=== PATIENT | female | born 1940 | race Caucasian/White ===

== ENCOUNTER → 2016-08-18 | Outpatient (CLI) | payer MEDICARE, OTHER ==
[~2016-08-18] MED LIST: ESTR1TAB22 PO; HYDR-34 PO; OMEP40CA36 PO; [UNRECOGNIZED DRUG - CODE] PO; [UNRECOGNIZED DRUG - CODE] PO
--- NOTE | 2016-08-19 10:19 | Diagnostic Imaging Report ---
EXAM: Bilateral screening mammogram The current study was also evaluated with a Computer Aided Detection (CAD) system. INDICATION: Screening. No current complaints stated on the questionnaire. COMPARISON: 03/02/15 FINDINGS: The breasts are composed of heterogeneously dense parenchyma which may decrease mammographic sensitivity. There are scattered benign-appearing calcifications. In the central posterior aspect of the right MLO view, there is a questionable area of architectural distortion. Otherwise, the parenchymal pattern is stable in both breasts from prior exams. IMPRESSION: Questionable architectural distortion and asymmetry along the posterior central aspect of the right MLO view. Focal compression view evaluation and ultrasound is recommended. BI-RADS 0. ACR BI-RADS Category 0: Incomplete. (Needs additional imaging evaluation). Result letter will be mailed to the patient. Note: At least 10% of breast cancer is not imaged by mammography. Dictated by: Dictated on workstation # [id number]
== END ==
LOC: RAD 15:16
PROVIDERS: ATTEND Internal Medicine
DX: Z12.31 Encounter for screening mammogram for malignant neoplasm of breast (principal); R92.8 Other abnormal and inconclusive findings on diagnostic imaging of breast
CPT/HCPCS: 77067

== ENCOUNTER → 2016-09-12 | Outpatient (CLI) | payer MEDICARE, OTHER ==
[~2016-09-12] MED LIST changes: +CATHETER FLUSH 10 ML SYR IV PRN; +IOHEXOL 350 MG/ML 100 ML (OMNIPAQUE 350) VIAL IV ONE; +NS 100 ML (IVPB) BAG IV ONE
[2016-09-12 12:25] LABS: BASOPHILS % (AUTO) 0 % (0-10); EOSINOPHILS # (AUTO) 0.3 10^3/uL (0.0-0.3); EOSINOPHILS % (AUTO) 3 % (0-10); LYMPHOCYTES % (AUTO) 33 % (12-44); MEAN CORPUSCULAR HEMOGLOBIN 32 PG (25-34); MEAN CORPUSCULAR HGB CONC 33 G/DL (32-36); MEAN CORPUSCULAR VOLUME 96 FL (80-99); MEAN PLATELET VOLUME 9.9 FL (7.4-10.4); MONOCYTES # (AUTO) 0.9 X 10^3 (0.0-1.0); MONOCYTES % (AUTO) 10 % (0-12); NEUTROPHILS # (AUTO) 4.9 X 10^3 (1.8-7.8); NEUTROPHILS % (AUTO) 53 % (42-75); PLATELET COUNT 290 10^3/uL (130-400); RED BLOOD COUNT 4.27 10^6/uL (4.35-5.85); RED CELL DISTRIBUTION WIDTH 13.1 % (10.0-14.5); WHITE BLOOD COUNT 9.1 10^3/uL (4.3-11.0)
[2016-09-12 12:27] LABS: BILIRUBIN,URINE NEGATIVE (NEGATIVE); KETONES,URINE NEGATIVE (NEGATIVE); LEUKOCYTE ESTERASE ,URINE NEGATIVE (NEGATIVE); NITRITE,URINE NEGATIVE (NEGATIVE); PH,URINE 5 (5-9); PROTEIN,URINE NEGATIVE (NEGATIVE); UROBILINOGEN,URINE NORMAL (NORMAL)
[2016-09-12 12:44] LABS: ALANINE AMINOTRANSFERASE 15 U/L (0-55); ALBUMIN 4.3 G/DL (3.2-4.5); ANION GAP 8 MMOL/L (5-14); ASPARTATE AMINO TRANSFERASE 25 U/L (5-34); BILIRUBIN,TOTAL 0.4 MG/DL (0.1-1.0); BLOOD UREA NITROGEN 15 MG/DL (7-18); BUN/CREATININE RATIO 21; CALCIUM 9.9 MG/DL (8.5-10.1); CARBON DIOXIDE 27 MMOL/L (21-32); CHLORIDE 105 MMOL/L (98-107); GFR ESTIMATED > 60; GLUCOSE 80 MG/DL (70-105); POTASSIUM 4.1 MMOL/L (3.6-5.0); SODIUM 140 MMOL/L (135-145); TOTAL PROTEIN 7.2 G/DL (6.4-8.2)
--- NOTE | 2016-09-12 14:30 | Diagnostic Imaging Report ---
PROCEDURE: CT abdomen and pelvis with contrast. TECHNIQUE: Multiple contiguous axial images were obtained through the abdomen and pelvis after administration of intravenous contrast. INDICATION: Generalized abdominal pain. CONTRAST: 100 mL of Omnipaque 350 is administered intravenously. FINDINGS: The lung bases appear clear. The liver, the spleen, the adrenal glands, and the pancreas appear unremarkable. The bile ducts are slightly dilated, with no obstructive mass identified. This is commonly seen after cholecystectomy. Cholecystectomy clips are seen. The kidneys have symmetric enhancement and contrast excretion. There is no hydronephrosis. The abdominal aorta caliber is normal. No para-aortic significantly enlarged lymph nodes seen. In the posterior left side of the pelvis, there is a 6.3 x 4.8 x 6.7 cm simple appearing cystic lesion probably arising from the left ovary. No septations or internal solid components seen. There is no previous study available for comparison. It displaces the uterus to the right side. There is no bowel obstruction. No free fluid in the abdomen or pelvis seen. The osseous structures demonstrate right convexity scoliosis. There is a lower lumbar spine degenerative change. IMPRESSION: A 6.7 cm left pelvic cystic mass is seen with no definite solid component. It is probably arising from the left adnexa and may represent a low-grade cystic neoplasm or a simple cyst. Further evaluation with pelvic ultrasound is recommended. Report was faxed to office of Dr. Jasmin Braxton @ 2:29 PM/charli. Dictated by: Dictated on workstation # [id number]
== END ==
LOC: RAD 12:07
PROVIDERS: ATTEND Internal Medicine
DX: R10.84 Generalized abdominal pain (principal); I10 Essential (primary) hypertension; E78.00 Pure hypercholesterolemia, unspecified; R19.04 Left lower quadrant abdominal swelling, mass and lump
CPT/HCPCS: 36415; 74177; 80053; 81000; 85025

== ENCOUNTER → 2016-09-20 | Outpatient (CLI) | payer MEDICARE, OTHER ==
[~2016-09-20] MED LIST changes: -CATHETER FLUSH 10 ML SYR IV PRN; -IOHEXOL 350 MG/ML 100 ML (OMNIPAQUE 350) VIAL IV ONE; -NS 100 ML (IVPB) BAG IV ONE
--- NOTE | 2016-09-20 16:35 | Diagnostic Imaging Report ---
EXAMINATION: Transabdominal and transvaginal pelvic ultrasound. INDICATION: Pelvic pain. FINDINGS: The uterus is 5.3 x 3.2 x 2.6 cm. The endometrial stripe is 4 mm in thickness. Minimal amount of free fluid in the endometrial cavity is noted. There is a simple appearing cystic structure measuring 8 x 5.2 x 5.2 cm in the left adnexa. The ovaries are not identified. This could potentially be from the left ovary. The ovaries are not seen probably due to atrophy at this age and bowel gas obscuration. No solid component or internal vascularity is demonstrated. IMPRESSION: Simple appearing 8 cm cystic lesion is seen in the left adnexa. Ovarian origin is possible but not confirmed on this exam. This could represent a simple cyst or a low-grade cystic neoplasm. Dictated by: Dictated on workstation # [id number]
== END ==
LOC: RAD 13:53
PROVIDERS: ATTEND Internal Medicine
DX: R19.09 Other intra-abdominal and pelvic swelling, mass and lump (principal)
CPT/HCPCS: 76830; 76856

== ENCOUNTER 2016-10-27 12:06 | Outpatient (CLI) | payer MEDICARE, OTHER ==
[~2016-10-27] VITALS: Ht 165.1 cm; Wt 54.1 kg
[2016-10-27 12:22] VITALS: BP 139/58
[2016-10-27 13:10] LABS: BASOPHILS % (AUTO) 0 % (0-10); EOSINOPHILS # (AUTO) 0.3 10^3/uL (0.0-0.3); EOSINOPHILS % (AUTO) 3 % (0-10); LYMPHOCYTES # (AUTO) 2.3 X 10^3 (1.0-4.0); LYMPHOCYTES % (AUTO) 23 % (12-44); MEAN CORPUSCULAR HEMOGLOBIN 32 PG (25-34); MEAN CORPUSCULAR HGB CONC 34 G/DL (32-36); MEAN CORPUSCULAR VOLUME 96 FL (80-99); MEAN PLATELET VOLUME 10.1 FL (7.4-10.4); MONOCYTES # (AUTO) 1.2 X 10^3 (0.0-1.0); MONOCYTES % (AUTO) 12 % (0-12); NEUTROPHILS # (AUTO) 6.5 X 10^3 (1.8-7.8); NEUTROPHILS % (AUTO) 63 % (42-75); PLATELET COUNT 267 10^3/uL (130-400); RED CELL DISTRIBUTION WIDTH 13.1 % (10.0-14.5); WHITE BLOOD COUNT 10.3 10^3/uL (4.3-11.0)
== END 2016-10-27 14:12 | disposition home or self-care (01) ==
LOC: PREOP 12:06
PROVIDERS: ATTEND Obstetrics & Gynecology
DX: Z01.812 Encounter for preprocedural laboratory examination (principal); Z11.2 Encounter for screening for other bacterial diseases; R10.2 Pelvic and perineal pain
CPT/HCPCS: 36415; 85025; 86850; 86900; 86901; 87081

== ENCOUNTER 2016-11-17 06:10 | Day surgery (SDC) | payer MEDICARE, OTHER ==
[~2016-11-17] VITALS: Ht 165.1 cm; Wt 54.1 kg
[2016-11-17] VITALS (10 sets, daily range): BP systolic 120–168; BP diastolic 51–76
[2016-11-17] MEDS ORDERED: NS (IVPB) 50 ML ONE (06:30)
[2016-11-17] MEDS ORDERED: ceFAZolin 1,000 MG (ANCEF) VIAL ONE (06:30)
[2016-11-17] MEDS ORDERED: metroNIDAZOLE 500MG/100ML IVPB 0 ML ONE (06:31)
[2016-11-17] MEDS ORDERED: ATRACURIUM 50 MG/5 ML (TRACRIUM) IV ONE (06:36)
[2016-11-17] MEDS ORDERED: HURRICAINE EXT TUBE (BENZOCAINE) ONE (06:37)
[2016-11-17] MEDS ORDERED: SEVOFLURANE (ULTANE) 15 ML INHAL SOLN ONE ×7 (06:37→08:47)
[2016-11-17] MEDS ORDERED: LIDOCAINE PF 2% 5 ML (XYLOCAINE) VIAL ONE ×2 (06:37→06:39)
[2016-11-17] MEDS ORDERED: proPOfol 200 MG/20 ML (DIPRIVAN) VIAL IV ONE (06:37)
[2016-11-17] MEDS ORDERED: fentaNYL INJECTION 100 MCG/2 ML AMP ONE (06:37)
[2016-11-17] MEDS ORDERED: LACTATED RINGERS 1,000 ML IV ONE (06:37)
[2016-11-17] MEDS ORDERED: MIDAZOLAM 2 MG/2 ML (VERSED) VIAL ONE (06:38)
[2016-11-17] MEDS ORDERED: BUP/EPI 0.5% 1:200,000 (MARCAINE) 10ML VIAL IJ ONE (06:43)
[2016-11-17] MEDS ORDERED: LACTATED RINGERS 1,000 ML IV PRN (06:57)
[2016-11-17] MEDS ORDERED: ceFAZolin 1 GM/NS 50 ML IVPB IV ONE ×2 (07:00)
[2016-11-17] MEDS ORDERED: metroNIDAZOLE 500 MG/100 ML IVPB (PRE-MIX) IV ONE (07:00)
--- NOTE | 2016-11-17 07:16 | Progress Note-Pre Operative ---
Pre-Operative Progress Note H&P Reviewed The H&P was reviewed, patient examined and no changes noted. Date Seen by Provider: Nov 17, 2016 Time Seen by Provider: 07:10 Date H&P Reviewed: Nov 17, 2016 Time H&P Reviewed: 07:11 Pre-Operative Diagnosis: Pelvic pain/pressure, Right adnexal mass COLLIN WHITE DO Nov 17, 2016 7:16 am
[2016-11-17] MEDS ORDERED: metroNIDAZOLE 500MG/100ML IVPB 100 ML ONE (07:20)
[2016-11-17] MEDS ORDERED: ZOLPIDEM 5 MG (AMBIEN) TAB PO PRN (07:30)
[2016-11-17] MEDS ORDERED: SIMETHICONE 80 MG (MYLICON) CHEW PO PRN (07:30)
[2016-11-17] MEDS ORDERED: HYDROcodone/APAP 7.5 MG/325 MG (LORTAB, LORCET PLUS) TABLET PO PRN (07:30)
[2016-11-17] MEDS ORDERED: ONDANSETRON 4 MG/2 ML (SDV) Z0FRAN IV PRN (07:30)
[2016-11-17] MEDS ORDERED: KETOROLAC 30 MG/ML VIAL IV PRN (07:30)
[2016-11-17] MEDS ORDERED: ANTACID SUSP 30 ML UDC (MYLANTA) PO PRN (07:30)
[2016-11-17] MEDS ORDERED: CHLORASEPTIC LOZENGE MM PRN (07:30)
[2016-11-17] MEDS ORDERED: DOCUSATE SODIUM 100 MG (COLACE) CAP PO PRN (07:30)
[2016-11-17] MEDS ORDERED: morphine INJ 10 MG/ML 1ML (SYR OR VIAL) ONE (08:57)
--- NOTE | 2016-11-17 09:16 | Progress Note-Post Operative ---
Post-Operative Progess Note Surgeon (s)/Rn Pool (s) Surgeon COLLIN WHITE DO Rn Pool: Angelina Navas Pre-Operative Diagnosis Pelvic pain/pressure, Right adnexal mass Post-Operative Diagnosis same plus simple appearing right adnexal cyst Procedure & Operative Findings Date of Procedure 11/17/16 Procedure Performed/Findings RATLH with BSO see dictation Anesthesia Type GETA Estimated Blood Loss Estimated blood loss (mL): min Specimens/Packing Specimens Removed uterus, bilateral fallopian tubes and ovaries COLLIN WHITE DO Nov 17, 2016 9:15 am
[2016-11-17] MEDS ORDERED: ONDANSETRON 4 MG/2 ML (SDV) Z0FRAN IVP PRN (09:30)
[2016-11-17] MEDS: LACTATED RINGERS 1,000 ML IV SCH ×3 (09:31→20:46)
[2016-11-17] MEDS: morphine INJ 10 MG/ML 1ML (SYR OR VIAL) IVP PRN ×3 (09:38→09:51)
[2016-11-17] MEDS ORDERED: IBUP-1773 PO (09:54)
[2016-11-17] MEDS ORDERED: SIME80TA16 PO (09:54)
[2016-11-17] MEDS ORDERED: DOCU100C37 PO (09:54)
[2016-11-17] MEDS ORDERED: HYDR-3816 PO (09:54)
--- NOTE | 2016-11-17 09:55 | Discharge Inst-Women's Service ---
Discharge Inst-Women's Serv Depart Medication/Instructions New, Converted or Re-Newed RX: RX on Chart Consults/Follow Up Additional Follow Up: Yes Activity Activity: Activity as Tolerated Driving Instructions: No Driving for 1 Week NO SMOKING: NO SMOKING Nothing Inside Vagina: No Douching, No [place], No Tampons Diet Discharge Diet: No Restrictions Symptoms to Report to : Bleeding Excessive, Pain Increased, Fever Over 101 Degrees F, Vaginal Bleeding Increase, Questions/Concerns For Any Problems or Questions: Contact Your Physician Skin/Wound Care Infection Signs and Symptoms: Increased Redness, Foul Odor of Wound, Increased Drainage, Skin Itchy or Has a Rash, Increased Swelling, Temperature Above 101 F Operative Area Clean and Dry: Keep Incision Clean/Dry Stitches/Raysal/Dermabond: Dermabond, Care of Stitches Bathing Instructions: COLLIN Portillo DO Nov 17, 2016 9:55 am
--- NOTE | 2016-11-17 09:59 | Progress Note-Post Operative ---
Post-Operative Progess Note Surgeon (s)/Dental Ceramist (s) Surgeon KARRI LOYA DO Dental Ceramist: Angelina Navas Pre-Operative Diagnosis Pelvic pain/pressure, Right adnexal mass Post-Operative Diagnosis Pt was given Levaquin 500mg IVPB at 7:20, Dr. Seals informed no further orders noted. Procedure & Operative Findings Date of Procedure 11/17/16 Procedure Performed/Findings As per surgeon Anesthesia Type G.E.T. Estimated Blood Loss Estimated blood loss (mL): Minimal Specimens/Packing Specimens Removed See surgical note KARRI LOYA DO Nov 17, 2016 09:59
[2016-11-17] MEDS ORDERED: KETOROLAC 15 MG/ML VIAL ONE (10:50)
[2016-11-17] MEDS ORDERED: KETOROLAC 15 MG/ML VIAL IV PRN (11:30)
--- NOTE | 2016-11-17 14:00 | OPERATIVE REPORT ---
DATE OF SERVICE: 11/17/2016 PREOPERATIVE DIAGNOSIS: A 76-year-old female with pelvic cystic mass which appears to be on the right side. POSTOPERATIVE DIAGNOSIS: A 76-year-old female with pelvic cystic mass which appears to be on the right side plus left-sided simple appearing left ovarian cyst, approximately 8 x 12 cm. PROCEDURE: Robotic assisted total laparoscopic hysterectomy with bilateral salpingo-oophorectomy. SURGEON: Dr. Mamadou Seals. COMMUNITY DEVELOPMENT OFFICER: GERARDO Samuel. ANESTHESIA: General endotracheal. ESTIMATED BLOOD LOSS: Minimal. URINE OUTPUT: 30 mL at the end of the procedure. FLUIDS: 1700 mL lactated ringer's solution. FINDINGS: This is a normal-appearing postmenopausal uterus and a normal-appearing right ovary, left cystic appearing structure in place of the left ovary and the left adnexa with a yellowish tinged aspirate noted upon drainage, grossly normal-appearing vaginal mucosa and external female genitalia. SPECIMENS SENT: Uterus, bilateral fallopian tubes and bilateral ovaries including pelvic mass. INDICATIONS FOR PROCEDURE: This 76-year-old female is in consultation in my office for finding of pelvic pain associated with a large pelvic structure that appeared to be coming from the right adnexa on CT and ultrasound. I discussed with the patient her risk factors for carcinoma given her age and the size of the tumor; however, due to its consistency of being simple on ultrasound, as well as negative tumor markers, I offered the patient operative management of it here in [place] rather than referring to a gynecology oncologist. The risks of the procedure was discussed with the patient in detail including risk of bleeding, infection, damage to surrounding structures including but not limited to bowel, bladder, ureter, kidneys, risk for postoperative complications and followup procedure were reviewed with the patient. After all of her questions were answered, I also discussed with the patient the risk for possible laparotomy and even subsequent procedure and staging procedure if carcinoma was identified. All of her questions were answered pertaining to this topic as well. Consent was obtained in the preoperative area with her present, and the patient was taken to the operating room. OPERATIVE REPORT IN DETAIL: Once in the operating room, general anesthesia was found to be adequate. She was placed in the dorsal lithotomy position, prepped and draped in the normal sterile fashion. She was first examined under anesthesia. The vagina is atrophic. The uterus is not enlarged; however, there is a mass that is palpable in the left side of the pelvis. Pierce catheter was placed using sterile technique. A timeout was performed. Weighted speculum was inserted in the patient's vagina. A right angle retractor was used to visualize the cervix. It was grasped at the 12 o'clock position using a single tooth tenaculum. An 0 Vicryl suture was placed to the anterior lip of the cervix and then the tenaculum was removed. I then sounded the uterine cavity. It was found to be approximately 7 cm. I gently dilated the cervix using Hegar dilators and introduced a 6 cm Yenni uteri manipulator tip and a 3 cm colpotomy ring into the endometrial canal deploying the balloon and advancing the colpotomy ring around the vaginal fornix. Once this was in place, I removed all the instruments from the patient's vagina and performed a change of clothes where I took my attention to the abdomen. I infraumbilically infiltrated this area using 0.25% Marcaine and made an 8 mm incision using a knife. I directed the Veress needle to this incision. Intraperitoneal placement was confirmed using a saline drop test. I then proceeded with insufflation using CO2 gas. An open pressure of 4 mmHg was noted. I proceeded to a maximum pressure of 50 mmHg, at which point I removed the Veress needle and introduced an 8 mm blunt da Luz camera trocar. Once this was in place, I am able to confirm intraperitoneal placement using the da Luz laparoscope. I then placed the patient in steep Trendelenburg, which I am able to visualize all the anatomy described with the findings above. I placed 2 lateral trocars approximately 8 cm lateral to my infraumbilical trocar. Both of these areas were infiltrated using 0.25% Marcaine. The incisions were made with the knife, and the trocars were placed under direct visualization with the laparoscope. Once these are in place, I brought in the da Luz robot and docked in the appropriate fashion placing the da Luz vessel sealer in the left hand and monopolar reese in the right hand. I began the procedure by removing the pelvic mass so that I may perform the hysterectomy. I start this by the utero-ovarian ligament on the left side and bipolar cauterizing it using the vessel sealer. I then bipolared cauterized and transected the infundibulopelvic ligament on the left side. I then took by dissection down the meso-ovarium and mesosalpinx amputating the left ovary and its cystic structure associated with it. I then proceed on the left side grasping the round ligament, bipolar cauterizing this and using the vessel sealer down to the level of the lower uterine segment at which point I the anterior posterior leaflets of the broad ligament. The anterior leaflet was taken out through anterior vaginal fornix. The posterior leaflet was taken around the posterior vaginal fornix. I then performed a colpotomy at the 12 o'clock position using monopolar reese and after this I bipolar cauterized the uterine vessels laterally and transected using the vessel sealer. I then took my attention to the right side where I bipolar cauterized the infundibulopelvic ligament and transected it using the vessel sealer. I grasped the round ligament, bipolar cauterized it and transected it using vessel sealer. I then took down the broad ligament to the level of the lower uterine segment, which in a similar fashion I take the anterior leaflet and the posterior leaflet down exposing laterally the uterine vessels. I then bipolar cauterized these and transected them using vessel sealer. This allows me a circumferential view to perform a colpotomy around the Giovanni uterine manipulator colpotomy ring. I do this using a monopolar reese, amputating the cervix away from the vaginal fornix. I then removed the uterus, bilateral fallopian tubes and right ovary through the vagina. An endopouch bag was then introduced to the vaginal, in which the large cystic structure was placed into the endopouch bag and the cystic structure was removed through the vagina. Once it is aspiration using needle aspiration it is able to easily fit through the vagina. There was no spillage of the ovarian aspirate into the peritoneal contents or the vaginal itself, after which the planes of dissection appear hemostatic. I then closed the vaginal cuff using 2-0 Vicryl suture in a [id number] fashion in the lateral vaginal apices was suspending them to uterosacral ligaments. I closed the remaining of the vaginal cuff using 2-0 V Loc in a running fashion. There was no active bleeding noted once again from any of dissection planes. I then undocked the da Luz robot and proceeded with the remainder of the case laparoscopically. I copiously irrigated the pelvis using normal saline. Once again, no active bleeding was noted from any of my dissection planes. I then placed FloSeal hemostatic agent over all my planes of dissection and had the patient taken out of steep Trendelenburg where I removed the lateral trocars under direct visualization laparoscopically. There was no active bleeding noted from these spots. I then removed the infraumbilical trocar after releasing insufflation to this incision and trocar. I introduced 10 mL of 0.25% Marcaine through this incision and removed the trocar. The skin was then closed using 4-0 Monocryl in interrupted subcuticular stitches. Dermabond was applied to the incision and Band-Aids were placed over these. Pierce catheter was left in place. One gram of Ancef and 500 mg of Levaquin were given preoperatively for infection prophylaxis. The patient was taken to the recovery area in stable condition. Job ID: [id number] DocumentID: [id number] Dictated Date: 11/17/2016 09:23:55 Boiler Installer Date: 11/17/2016 13:59:09 Dictated By: DO JADEN GALEANO
[2016-11-17] MEDS ORDERED: HYDROcodone/APAP 5 MG/325 MG (LORTAB) TAB PO PRN (18:00)
[2016-11-18] VITALS: BP 162/61
[2016-11-18] MEDS ORDERED: IBUPROFEN 600 MG (MOTRIN) TAB PO ONE (01:04)
[2016-11-18 04:00] VITALS: BP 126/55
[2016-11-18] MEDS ORDERED: IBUPROFEN 600 MG (MOTRIN) TAB PO PRN (05:30)
[2016-11-18 08:00] VITALS: BP 136/50
--- NOTE | 2016-11-18 09:59 | Anesthesia-General Post-Op ---
General Patient Condition Mental Status/LOC: Same as Preop Cardiovascular: Satisfactory Nausea/Vomiting: Absent Respiratory: Satisfactory Pain: Controlled Complications: Absent Post Op Complications Complications None Follow Up Care/Instructions Patient Instructions None needed. Anesthesia/Patient Condition Patient Condition Patient is doing well, no complaints, stable vital signs, no apparent adverse anesthesia problems. No complications reported per nursing. BETTY FERRARI CRNA Nov 18, 2016 09:59
[2016-11-18 10:30] VITALS: BP 136/50
== END 2016-11-18 10:30 | disposition home or self-care (01) ==
LOC: SDC 06:10 → WS 11:01 → SDC 11-18 10:30
PROVIDERS: ATTEND Obstetrics & Gynecology
DX: N83.201 Unspecified ovarian cyst, right side (principal); N83.202 Unspecified ovarian cyst, left side; F17.210 Nicotine dependence, cigarettes, uncomplicated
CPT/HCPCS: 88112; 88305; 88307; 94664; 96361; 96375

== ENCOUNTER → 2016-12-14 | Outpatient (CLI) | payer MEDICARE, OTHER ==
[~2016-12-14] MED LIST changes: +DOCU100C37 PO; +HYDR-3816 PO; +IBUP-1773 PO; +SIME80TA16 PO
--- NOTE | 2016-12-14 13:23 | Diagnostic Imaging Report ---
EXAMINATION: Three views of the right knee. INDICATION: Osteoarthritis. FINDINGS: There is severe joint space loss in the medial compartment. Subchondral sclerotic changes and osteophytes are seen. Minimal osteophytes in the lateral compartment are seen. There is osteophyte formation also of the patella. There is suggestion of a suprapatellar effusion. The joint space in the lateral compartment and probably also in the patellofemoral compartment appears to be preserved. IMPRESSION: Osteoarthritis of the right knee, severe in the medial compartment. Dictated by: Dictated on workstation # [id number]
== END ==
LOC: RAD 08:11
PROVIDERS: ATTEND Orthopaedic Surgery
DX: M17.11 Unilateral primary osteoarthritis, right knee (principal)
CPT/HCPCS: 73562

== ENCOUNTER → 2017-01-03 | Outpatient (CLI) | payer MEDICARE, OTHER | LOC: RAD 13:17 | PROVIDERS: ATTEND Internal Medicine | DX: R91.1 Solitary pulmonary nodule (principal); J84.10 Pulmonary fibrosis, unspecified | CPT/HCPCS: 71250 ==

== ENCOUNTER → 2017-03-06 | Outpatient (CLI) | payer MEDICARE, OTHER ==
--- NOTE | 2017-03-06 13:41 | Diagnostic Imaging Report ---
Right breast diagnostic mammogram. CAD is utilized. The current study was also evaluated with a Computer Aided Detection (CAD) system. INDICATION: Asymmetry along the posterior central aspect of the right MLO view with questionable architectural distortion. FINDINGS: The right breast parenchyma is compressed with tomography evaluation demonstrated no definitive underlying mass. IMPRESSION: Diagnostic mammogram additional views demonstrate no definitive suspicious lesion. The apparent architectural distortion and asymmetry is perhaps related to the background dense parenchyma. Ultrasound evaluation pending. BI-RADS 0. ACR BI-RADS Category 0: Incomplete. (Needs additional imaging evaluation). Result letter will be mailed to the patient. Note: At least 10% of breast cancer is not imaged by mammography. Dictated by: Dictated on workstation # [id number]
--- NOTE | 2017-03-06 22:39 | Diagnostic Imaging Report ---
Right breast ultrasound. INDICATION: Central to upper right breast asymmetry. FINDINGS: The retroareolar region in the 4 quadrants of right breast were scanned with no underlying abnormality seen. IMPRESSION: Negative study. Asymmetry seen on mammography could be related to summation artifact of parenchyma. 6 months followup right breast mammogram is recommended to reassess. ACR BI-RADS Category 3: Probably benign findings. Dictated by: Dictated on workstation # [id number]
== END ==
LOC: RAD 12:12
PROVIDERS: ATTEND Internal Medicine
DX: N64.89 Other specified disorders of breast (principal); R92.0 Mammographic microcalcification found on diagnostic imaging of breast
CPT/HCPCS: 76641

== ENCOUNTER 2017-04-11 13:47 | Outpatient (CLI) | payer MEDICARE, OTHER ==
[~2017-04-11] VITALS: Ht 165.1 cm; Wt 55.3 kg
[2017-04-11 14:02] VITALS: BP 130/67
[2017-04-11] MEDS ORDERED: TRAZ-28 PO (14:04)
[2017-04-11] MEDS ORDERED: CALC-696 PO (14:04)
[2017-04-11] MEDS ORDERED: FEXO180T84 PO (14:04)
[2017-04-11 14:35] LABS: BASOPHILS % (AUTO) 0 % (0-10); EOSINOPHILS # (AUTO) 0.3 10^3/uL (0.0-0.3); EOSINOPHILS % (AUTO) 3 % (0-10); HEMATOCRIT 40 % (35-52); HEMOGLOBIN 13.6 G/DL (11.5-16.0); LYMPHOCYTES # (AUTO) 2.7 X 10^3 (1.0-4.0); LYMPHOCYTES % (AUTO) 23 % (12-44); MEAN CORPUSCULAR HEMOGLOBIN 33 PG (25-34); MEAN CORPUSCULAR HGB CONC 34 G/DL (32-36); MEAN CORPUSCULAR VOLUME 95 FL (80-99); MEAN PLATELET VOLUME 9.7 FL (7.4-10.4); MONOCYTES # (AUTO) 1.1 X 10^3 (0.0-1.0); MONOCYTES % (AUTO) 10 % (0-12); NEUTROPHILS # (AUTO) 7.6 X 10^3 (1.8-7.8); NEUTROPHILS % (AUTO) 65 % (42-75); PLATELET COUNT 306 10^3/uL (130-400); RED BLOOD COUNT 4.14 10^6/uL (4.35-5.85); RED CELL DISTRIBUTION WIDTH 13.1 % (10.0-14.5); WHITE BLOOD COUNT 11.8 10^3/uL (4.3-11.0)
[2017-04-11 14:55] LABS: BUN/CREATININE RATIO 19; CALCIUM 9.7 MG/DL (8.5-10.1); CARBON DIOXIDE 25 MMOL/L (21-32); CHLORIDE 101 MMOL/L (98-107); GFR ESTIMATED > 60; GLUCOSE 86 MG/DL (70-105); POTASSIUM 3.9 MMOL/L (3.6-5.0); SODIUM 138 MMOL/L (135-145)
== END 2017-04-11 14:30 | disposition home or self-care (01) ==
LOC: PREOP 13:47
PROVIDERS: ATTEND Otolaryngology Otolaryngology/Facial Plastic Surgery
DX: Z01.812 Encounter for preprocedural laboratory examination (principal); Z11.2 Encounter for screening for other bacterial diseases; J34.89 Other specified disorders of nose and nasal sinuses
CPT/HCPCS: 36415; 80048; 85025; 87081; 93005

== ENCOUNTER 2017-04-14 08:05 | Day surgery (SDC) | payer MEDICARE, OTHER ==
[~2017-04-14] VITALS: Ht 165.1 cm; Wt 55.3 kg
[~2017-04-14 08:05] MED LIST changes: +CALC-696 PO; +FEXO180T84 PO; +TRAZ-28 PO
--- OUTSIDE RECORDS SUMMARY | 2017-04-14 08:10 | XMS REPORT | Continuity of Care Document ---
Author Author [facility] Organization [facility] Address Unknown Phone Unavailable Allergies Active Description Code Type Severity Reaction Onset Reported/Identified Relationship to Patient Clinical Status Yes No Known Drug Allergies [id number] Drug Allergy Unknown N/A 10/27/2016 Medications There is no data. Problems Date Dx Coded Attending Type Code Diagnosis Diagnosed By 12/18/2012 KEN NICOLE DO Ot V16.0 FAMILY HX-GI MALIGNANCY 12/18/2012 KEN NICOLE DO Ot V76.51 SCREEN MAL NEOP-COLON 02/14/2014 GIULIA ANDERSON DPM Ot 355.6 PLANTAR NERVE LESION 02/14/2014 GIULIA ANDERSON DPM Ot 726.91 EXOSTOSIS, SITE NOS 02/14/2014 MONICA QUEEN, GIULIA Toussaint Ot 735.4 OTHER HAMMER TOE 11/06/2014 OMAR STAUFFER, DYLAN Ot 793.80 03/26/2015 OMAR STAUFFER, DYLAN Ot R92.2 07/03/2015 Ot 733.00 07/03/2015 Ot 793.81 07/03/2015 Ot V76.12 07/03/2015 Ot 610.0 07/03/2015 Ot 793.89 07/03/2015 Ot V76.12 07/03/2015 Ot 610.0 07/03/2015 Ot 793.80 07/03/2015 Ot 473.2 07/03/2015 OMAR STAUFFER, DYLAN Ot V76.12 07/03/2015 OMAR STAUFFER, DYLAN Ot 610.0 07/03/2015 KEN NICOLE DO Ot V72.84 07/03/2015 OMAR DO, DYLAN Ot 786.2 07/03/2015 OMAR DO, DYLAN Ot 793.89 07/03/2015 MONICA DPGIULIA Mercado Ot 355.6 07/03/2015 GIULIA ANDERSON DPM Ot 726.91 07/03/2015 GIULIA ANDERSON DPM Ot 735.4 07/03/2015 MONICA DPM, GIULIA P Ot V72.84 07/03/2015 MNOICA DPJess, GIULIA P Ot V74.8 07/03/2015 OMAR STAUFFER, DYLAN Ot 793.80 07/03/2015 OMAR STAUFFER, DYLAN Ot 793.80 07/03/2015 OMAR STAUFFER, DYLAN Ot R92.2 07/07/2015 OMAR STAUFFER DYLAN Ot F17.210 07/07/2015 OMAR STAUFFER DYLAN Ot R91.1 07/22/2015 NELSON DO, DYLAN Ot F17.210 NICOTINE DEPENDENCE, CIGARETTES, UNCOMPL 07/22/2015 NELSON DO, DLYAN Ot R91.1 SOLITARY PULMONARY NODULE 02/05/2016 Ot 793.89 OTH (ABN) FINDINGS ON RADIOLOGICAL EXAMI 02/05/2016 Ot V76.12 OTH SCREEN MAMMO-MALIGN NEOPLASM OF ANAYELI 02/05/2016 Ot 610.0 SOLITARY CYST OF BREAST 02/05/2016 Ot 793.80 UNSPEC ABNORMAL MAMMOGRAM 02/05/2016 Ot 473.2 CHR ETHMOIDAL SINUSITIS 02/05/2016 OMAR STAUFFER DYLAN Ot V76.12 OTH SCREEN MAMMO-MALIGN NEOPLASM OF ANAYELI 02/05/2016 OMAR STAUFFER DYLAN Ot 610.0 SOLITARY CYST OF BREAST 02/05/2016 KEN NICOLE DO Ot V72.84 EXAM PRE-OPERATIVE NOS 02/05/2016 OMAR STAUFFER, DYLAN Ot 786.2 COUGH 02/05/2016 OMAR STAUFFER DYLAN Ot 793.89 OTH (ABN) FINDINGS ON RADIOLOGICAL EXAMI 02/05/2016 MONICA DPJess, GIULIA P Ot 355.6 PLANTAR NERVE LESION 02/05/2016 MONICA DPJess, GIULIA P Ot 726.91 EXOSTOSIS, SITE NOS 02/05/2016 MONICA DPJess, GIULIA P Ot 735.4 OTHER HAMMER TOE 02/05/2016 MONICA DPJess, GIULIA P Ot V72.84 EXAM PRE-OPERATIVE NOS 02/05/2016 MONICA DPJess, GIULIA P Ot V74.8 SCREEN-BACTERIAL DIS NEC 02/05/2016 OMAR STAUFFER DYLAN Ot 793.80 UNSPEC ABNORMAL MAMMOGRAM 02/05/2016 OMAR STAUFFER DYLAN Ot 793.80 UNSPEC ABNORMAL MAMMOGRAM 02/05/2016 NELSONDYLAN KUHN DO Ot R92.2 INCONCLUSIVE MAMMOGRAM 02/05/2016 NELSONDYLAN KUHN DO Ot F17.210 NICOTINE DEPENDENCE, CIGARETTES, UNCOMPL 02/05/2016 NELSONHERMAN KUHN DOI Ot R91.1 SOLITARY PULMONARY NODULE 02/05/2016 OMAR HERMAN STAUFFERI Ot F17.200 NICOTINE DEPENDENCE, UNSPECIFIED, UNCOMP 02/05/2016 NELSONHERMAN KUHN DOI Ot R91.8 OTHER NONSPECIFIC ABNORMAL FINDING OF EVA 02/24/2016 OMAR HERMAN STAUFFERI Ot F17.200 NICOTINE DEPENDENCE, UNSPECIFIED, UNCOMP 02/24/2016 OMAR DO DYLAN Ot R91.8 OTHER NONSPECIFIC ABNORMAL FINDING OF EVA 08/15/2016 NELSONDYLAN KUHN DO Ot Z12.31 ENCNTR SCREEN MAMMOGRAM FOR MALIGNANT NE 08/17/2016 NELSONDYLAN KUHN DO Ot Z12.31 ENCNTR SCREEN MAMMOGRAM FOR MALIGNANT NE 08/18/2016 Ot 793.89 OTH (ABN) FINDINGS ON RADIOLOGICAL EXAMI 08/18/2016 Ot V76.12 OTH SCREEN MAMMO-MALIGN NEOPLASM OF ANAYELI 08/18/2016 Ot 610.0 SOLITARY CYST OF BREAST 08/18/2016 Ot 793.80 UNSPEC ABNORMAL MAMMOGRAM 08/18/2016 Ot 473.2 CHR ETHMOIDAL SINUSITIS 08/18/2016 DYLAN NELSON DO Ot V76.12 OTH SCREEN MAMMO-MALIGN NEOPLASM OF ANAYELI 08/18/2016 HERMAN NELSON DOI Ot 610.0 SOLITARY CYST OF BREAST 08/18/2016 KEN NICOLE DO Ot V72.84 EXAM PRE-OPERATIVE NOS 08/18/2016 OMAR STAUFFER DYLAN Ot 786.2 COUGH 08/18/2016 DYLAN NELSON DO Ot 793.89 OTH (ABN) FINDINGS ON RADIOLOGICAL EXAMI 08/18/2016 MONICA DPM, GIULIA P Ot 355.6 PLANTAR NERVE LESION 08/18/2016 MONICA DPJess, GIULIA P Ot 726.91 EXOSTOSIS, SITE NOS 08/18/2016 MONICA DPM, GIULIA P Ot 735.4 OTHER HAMMER TOE 08/18/2016 MONICA DPJess, GIULIA P Ot V72.84 EXAM PRE-OPERATIVE NOS 08/18/2016 MONICA DPJess, GIULIA P Ot V74.8 SCREEN-BACTERIAL DIS NEC 08/18/2016 DYLAN NELSON DO Ot 793.80 UNSPEC ABNORMAL MAMMOGRAM 08/18/2016 DYLAN NELSON DO Ot 793.80 UNSPEC ABNORMAL MAMMOGRAM 08/18/2016 DYLAN NELSON DO Ot R92.2 INCONCLUSIVE MAMMOGRAM 08/18/2016 DYLAN NELSON DO Ot F17.210 NICOTINE DEPENDENCE, CIGARETTES, UNCOMPL 08/18/2016 DYLAN NELSON DO Ot R91.1 SOLITARY PULMONARY NODULE 08/18/2016 DYLAN NELSON DO Ot F17.200 NICOTINE DEPENDENCE, UNSPECIFIED, UNCOMP 08/18/2016 DYLAN NELSON DO Ot R91.8 OTHER NONSPECIFIC ABNORMAL FINDING OF EVA 08/18/2016 DYLAN NELSON DO Ot Z12.31 ENCNTR SCREEN MAMMOGRAM FOR MALIGNANT NE 08/18/2016 DYLAN NELSON DO Ot Z12.31 ENCNTR SCREEN MAMMOGRAM FOR MALIGNANT NE 09/08/2016 DYLAN NELSON DO Ot R92.8 OTH ABN AND INCONCLUSIVE FINDINGS ON DX 09/08/2016 DYLAN NELSON DO Ot Z12.31 ENCNTR SCREEN MAMMOGRAM FOR MALIGNANT NE 09/21/2016 DYLAN NELSON DO Ot R19.09 OTHER INTRA-ABDOMINAL AND PELVIC SWELLIN 10/06/2016 DYLAN NELSON DO Ot E78.00 PURE HYPERCHOLESTEROLEMIA, UNSPECIFIED 10/06/2016 HERMAN NELSON DOI Ot I10 ESSENTIAL (PRIMARY) HYPERTENSION 10/06/2016 DYLAN NELSON DO Ot R10.84 GENERALIZED ABDOMINAL PAIN 10/06/2016 DYLAN NELSON DO Ot R19.04 LEFT LOWER QUADRANT ABDOMINAL SWELLING, 10/12/2016 DYLAN NELSON DO Ot R19.09 OTHER INTRA-ABDOMINAL AND PELVIC SWELLIN 10/26/2016 Ot 610.0 SOLITARY CYST OF BREAST 10/26/2016 Ot 793.80 UNSPEC ABNORMAL MAMMOGRAM 10/26/2016 Ot 473.2 CHR ETHMOIDAL SINUSITIS 10/26/2016 DYLAN NELSON DO Ot V76.12 OTH SCREEN MAMMO-MALIGN NEOPLASM OF ANAYELI 10/26/2016 DYLAN NELSON DO Ot 610.0 SOLITARY CYST OF BREAST 10/26/2016 KEN NIOCLE DO Ot V72.84 EXAM PRE-OPERATIVE NOS 10/26/2016 NELSON DO, DYLAN Ot 786.2 COUGH 10/26/2016 OMAR STAUFFER DYLAN Ot 793.89 OTH (ABN) FINDINGS ON RADIOLOGICAL EXAMI 10/26/2016 MONICA DPM, GIULIA P Ot 355.6 PLANTAR NERVE LESION 10/26/2016 MONICA DPM, GIULIA P Ot 726.91 EXOSTOSIS, SITE NOS 10/26/2016 ANDERSON DPM, GIULIA P Ot 735.4 OTHER HAMMER TOE 10/26/2016 MONICA DPM, GIULIA P Ot V72.84 EXAM PRE-OPERATIVE NOS 10/26/2016 MONICA DPM, GIULIA P Ot V74.8 SCREEN-BACTERIAL DIS NEC 10/26/2016 OMAR STAUFFER DYLAN Ot 793.80 UNSPEC ABNORMAL MAMMOGRAM 10/26/2016 HERMAN NELSON DOI Ot 793.80 UNSPEC ABNORMAL MAMMOGRAM 10/26/2016 HERMAN NELSON DOI Ot R92.2 INCONCLUSIVE MAMMOGRAM 10/26/2016 HERMAN NELSON DOI Ot F17.210 NICOTINE DEPENDENCE, CIGARETTES, UNCOMPL 10/26/2016 HERMAN NELSON DOI Ot R91.1 SOLITARY PULMONARY NODULE 10/26/2016 HERMAN NELSON DOI Ot F17.200 NICOTINE DEPENDENCE, UNSPECIFIED, UNCOMP 10/26/2016 HERMAN NELSON DOI Ot R91.8 OTHER NONSPECIFIC ABNORMAL FINDING OF EVA 10/26/2016 DYLAN NELSON DO Ot R92.8 OTH ABN AND INCONCLUSIVE FINDINGS ON DX 10/26/2016 DYLAN NELSON DO Ot Z12.31 ENCNTR SCREEN MAMMOGRAM FOR MALIGNANT NE 10/26/2016 DYLAN NELSON DO Ot E78.00 PURE HYPERCHOLESTEROLEMIA, UNSPECIFIED 10/26/2016 HERMNA NELSON DOI Ot I10 ESSENTIAL (PRIMARY) HYPERTENSION 10/26/2016 DYLAN NELSON DO Ot R10.84 GENERALIZED ABDOMINAL PAIN 10/26/2016 DYLAN NELSON DO Ot R19.04 LEFT LOWER QUADRANT ABDOMINAL SWELLING, 10/26/2016 DYLAN NELSON DO Ot R19.09 OTHER INTRA-ABDOMINAL AND PELVIC SWELLIN 10/27/2016 COLLIN WHITE DO Ot R10.2 PELVIC AND PERINEAL PAIN 10/27/2016 COLLIN WHITE DO Ot Z01.812 ENCOUNTER FOR PREPROCEDURAL LABORATORY E 10/27/2016 COLLIN WHITE DO Ot Z11.2 ENCOUNTER FOR SCREENING FOR OTHER BACTER 11/18/2016 COLLIN WHITE DO Ot F17.210 NICOTINE DEPENDENCE, CIGARETTES, UNCOMPL 11/18/2016 COLLIN WHITE DO Ot N83.201 UNSPECIFIED OVARIAN CYST, RIGHT SIDE 11/18/2016 COLLIN WHITE DO Ot N83.202 UNSPECIFIED OVARIAN CYST, LEFT SIDE 01/09/2017 DELVIS PALUMBO, COLLIN Toussaint Ot M17.11 UNILATERAL PRIMARY OSTEOARTHRITIS, RIGHT 01/26/2017 DYLAN NELSON DO Ot J84.10 PULMONARY FIBROSIS, UNSPECIFIED 01/26/2017 DYLAN NELSON DO Ot R91.1 SOLITARY PULMONARY NODULE 03/29/2017 DYLAN NELSON DO Ot N64.89 OTHER SPECIFIED DISORDERS OF BREAST 03/29/2017 DYLAN NELSON DO Ot R92.0 MAMMOGRAPHIC MICROCALCIFICATION FOUND ON Procedures There is no data. Results Test Result Range Complete blood count (CBC) with automated white blood cell (WBC) differential - 09/12/16 12:16 Blood leukocytes automated count (number/volume) 9.1 10*3/uL 4.3-11.0 Blood erythrocytes automated count (number/volume) 4.27 10*6/uL 4.35-5.85 Venous blood hemoglobin measurement (mass/volume) 13.7 g/dL 11.5-16.0 Blood hematocrit (volume fraction) 41 % 35-52 Automated erythrocyte mean corpuscular volume 96 [foz_us] 80-99 Automated erythrocyte mean corpuscular hemoglobin (mass per erythrocyte) 32 pg 25-34 Automated erythrocyte mean corpuscular hemoglobin concentration measurement ( mass/volume) 33 g/dL 32-36 Automated erythrocyte distribution width ratio 13.1 % 10.0-14.5 Automated blood platelet count (count/volume) 290 10*3/uL 130-400 Automated blood platelet mean volume measurement 9.9 [foz_us] 7.4-10.4 Automated blood neutrophils/100 leukocytes 53 % 42-75 Automated blood lymphocytes/100 leukocytes 33 % 12-44 Blood monocytes/100 leukocytes 10 % 0-12 Automated blood eosinophils/100 leukocytes 3 % 0-10 Automated blood basophils/100 leukocytes 0 % 0-10 Blood neutrophils automated count (number/volume) 4.9 10*3 1.8-7.8 Blood lymphocytes automated count (number/volume) 3.0 10*3 1.0-4.0 Blood monocytes automated count (number/volume) 0.9 10*3 0.0-1.0 Automated eosinophil count 0.3 10*3/uL 0.0-0.3 Automated blood basophil count (count/volume) 0.0 10*3/uL 0.0-0.1 Comprehensive metabolic panel - 09/12/16 12:16 Serum or plasma sodium measurement (moles/volume) 140 mmol/L 135-145 Serum or plasma potassium measurement (moles/volume) 4.1 mmol/L 3.6-5.0 Serum or plasma chloride measurement (moles/volume) 105 mmol/L 98-107 Carbon dioxide 27 mmol/L 21-32 Serum or plasma anion gap determination (moles/volume) 8 mmol/L 5-14 Serum or plasma urea nitrogen measurement (mass/volume) 15 mg/dL 7-18 Serum or plasma creatinine measurement (mass/volume) 0.70 mg/dL 0.60-1.30 Serum or plasma urea nitrogen/creatinine mass ratio 21 NRG Serum or plasma creatinine measurement with calculation of estimated glomerular filtration rate > NRG Serum or plasma glucose measurement (mass/volume) 80 mg/dL 70-105 Serum or plasma calcium measurement (mass/volume) 9.9 mg/dL 8.5-10.1 Serum or plasma total bilirubin measurement (mass/volume) 0.4 mg/dL 0.1-1.0 Serum or plasma alkaline phosphatase measurement (enzymatic activity/volume) 54 U/L 40-136 Serum or plasma aspartate aminotransferase measurement (enzymatic activity/ volume) 25 U/L 5-34 Serum or plasma alanine aminotransferase measurement (enzymatic activity/volume ) 15 U/L 0-55 Serum or plasma protein measurement (mass/volume) 7.2 g/dL 6.4-8.2 Serum or plasma albumin measurement (mass/volume) 4.3 g/dL 3.2-4.5 Complete urinalysis with reflex to culture - 09/12/16 12:20 Urine color determination YELLOW NRG Urine clarity determination CLEAR NRG Urine pH measurement by test strip 5 5-9 Specific gravity of urine by test strip 1.015 1.016- 1.022 Urine protein assay by test strip, semi-quantitative NEGATIVE NEGATIVE Urine glucose detection by automated test strip NEGATIVE NEGATIVE Erythrocytes detection in urine sediment by light microscopy NEGATIVE NEGATIVE Urine ketones detection by automated test strip NEGATIVE NEGATIVE Urine nitrite detection by test strip NEGATIVE NEGATIVE Urine total bilirubin detection by test strip NEGATIVE NEGATIVE Urine urobilinogen measurement by automated test strip (mass/volume) NORMAL NORMAL Urine leukocyte esterase detection by dipstick NEGATIVE NEGATIVE Automated urine sediment erythrocyte count by microscopy (number/high power field) NONE NRG Automated urine sediment leukocyte count by microscopy (number/high power field ) NONE NRG Bacteria detection in urine sediment by light microscopy TRACE NRG Squamous epithelial cells detection in urine sediment by light microscopy 2-5 NRG Crystals detection in urine sediment by light microscopy NONE NRG Casts detection in urine sediment by light microscopy NONE NRG Mucus detection in urine sediment by light microscopy NEGATIVE NRG Complete urinalysis with reflex to culture NO NRG Complete blood count (CBC) with automated white blood cell (WBC) differential - 10/27/16 12:45 Blood leukocytes automated count (number/volume) 10.3 10*3/uL 4.3-11.0 Blood erythrocytes automated count (number/volume) 4.20 10*6/uL 4.35-5.85 Venous blood hemoglobin measurement (mass/volume) 13.5 g/dL 11.5-16.0 Blood hematocrit (volume fraction) 40 % 35-52 Automated erythrocyte mean corpuscular volume 96 [foz_us] 80-99 Automated erythrocyte mean corpuscular hemoglobin (mass per erythrocyte) 32 pg 25-34 Automated erythrocyte mean corpuscular hemoglobin concentration measurement ( mass/volume) 34 g/dL 32-36 Automated erythrocyte distribution width ratio 13.1 % 10.0-14.5 Automated blood platelet count (count/volume) 267 10*3/uL 130-400 Automated blood platelet mean volume measurement 10.1 [foz_us] 7.4-10.4 Automated blood neutrophils/100 leukocytes 63 % 42-75 Automated blood lymphocytes/100 leukocytes 23 % 12-44 Blood monocytes/100 leukocytes 12 % 0-12 Automated blood eosinophils/100 leukocytes 3 % 0-10 Automated blood basophils/100 leukocytes 0 % 0-10 Blood neutrophils automated count (number/volume) 6.5 10*3 1.8-7.8 Blood lymphocytes automated count (number/volume) 2.3 10*3 1.0-4.0 Blood monocytes automated count (number/volume) 1.2 10*3 0.0-1.0 Automated eosinophil count 0.3 10*3/uL 0.0-0.3 Automated blood basophil count (count/volume) 0.0 10*3/uL 0.0-0.1 Blood type T Indirect antibody screen panel - 10/27/16 12:45 ABO+Rh group AP NRG Blood group antibody screen NEGATIVE NRG Methicillin resistant Staphylococcus aureus (MRSA) screening culture - 13:00 Methicillin resistant Staphylococcus aureus (MRSA) screening culture NEG NRG Blood type T Indirect antibody screen panel - 11/17/16 06:35 ABO+Rh group AP NRG Transfusion band number [id number] NRG Blood group antibody screen NEGATIVE NRG Complete blood count (CBC) with automated white blood cell (WBC) differential - 04/11/17 14:13 Blood leukocytes automated count (number/volume) 11.8 10*3/uL 4.3-11.0 Blood erythrocytes automated count (number/volume) 4.14 10*6/uL 4.35-5.85 Venous blood hemoglobin measurement (mass/volume) 13.6 g/dL 11.5-16.0 Blood hematocrit (volume fraction) 40 % 35-52 Automated erythrocyte mean corpuscular volume 95 [foz_us] 80-99 Automated erythrocyte mean corpuscular hemoglobin (mass per erythrocyte) 33 pg 25-34 Automated erythrocyte mean corpuscular hemoglobin concentration measurement ( mass/volume) 34 g/dL 32-36 Automated erythrocyte distribution width ratio 13.1 % 10.0-14.5 Automated blood platelet count (count/volume) 306 10*3/uL 130-400 Automated blood platelet mean volume measurement 9.7 [foz_us] 7.4-10.4 Automated blood neutrophils/100 leukocytes 65 % 42-75 Automated blood lymphocytes/100 leukocytes 23 % 12-44 Blood monocytes/100 leukocytes 10 % 0-12 Automated blood eosinophils/100 leukocytes 3 % 0-10 Automated blood basophils/100 leukocytes 0 % 0-10 Blood neutrophils automated count (number/volume) 7.6 10*3 1.8-7.8 Blood lymphocytes automated count (number/volume) 2.7 10*3 1.0-4.0 Blood monocytes automated count (number/volume) 1.1 10*3 0.0-1.0 Automated eosinophil count 0.3 10*3/uL 0.0-0.3 Automated blood basophil count (count/volume) 0.0 10*3/uL 0.0-0.1 Whole blood basic metabolic panel - 04/11/17 14:13 Serum or plasma sodium measurement (moles/volume) 138 mmol/L 135-145 Serum or plasma potassium measurement (moles/volume) 3.9 mmol/L 3.6-5.0 Serum or plasma chloride measurement (moles/volume) 101 mmol/L 98-107 Carbon dioxide 25 mmol/L 21-32 Serum or plasma anion gap determination (moles/volume) 12 mmol/L 5-14 Serum or plasma urea nitrogen measurement (mass/volume) 13 mg/dL 7-18 Serum or plasma creatinine measurement (mass/volume) 0.70 mg/dL 0.60-1.30 Serum or plasma urea nitrogen/creatinine mass ratio 19 NRG Serum or plasma creatinine measurement with calculation of estimated glomerular filtration rate > NRG Serum or plasma glucose measurement (mass/volume) 86 mg/dL 70-105 Serum or plasma calcium measurement (mass/volume) 9.7 mg/dL 8.5-10.1 Methicillin resistant Staphylococcus aureus (MRSA) screening culture - 14:13 Methicillin resistant Staphylococcus aureus (MRSA) screening culture NEG NRG Encounters ACCT No. Visit Date/Time Discharge Status Pt. Type Provider Facility Loc./Unit Complaint [id number] 04/11/2017 13:47:00 04/11/2017 14:30:00 DIS Outpatient COLLIN MURPHY MD [facility] PREOP RIGHT INTRANASAL LESION [id number] 03/06/2017 12:12:00 03/06/2017 23:59:59 CLS Outpatient DYLAN NELSON DO [facility] RAD R92.0 MAMMOGRAPHIC MICROCALCIFICATION ON BREAST [id number] 01/03/2017 13:17:00 01/03/2017 23:59:59 CLS Outpatient DYLAN NELSON DO [facility] RAD LUNG NODULE R91.1 [id number] 12/14/2016 08:11:00 12/14/2016 23:59:59 CLS Outpatient COLLIN EDMONDSON MD [facility] RAD M17.9 [id number] 11/17/2016 06:10:00 11/18/2016 10:30:00 DIS Outpatient COLLIN WHITE DO [facility] SDC PELVIC PRESSURE, RIGHT ADNEXAL MASS [id number] 10/27/2016 12:06:00 10/27/2016 14:12:00 DIS Outpatient COLLIN WHITE DO [facility] PREOP ROBOTIC HYSTERECTOMY WITH BSO [id number] 09/20/2016 13:53:00 09/20/2016 23:59:59 CLS Outpatient NELSON DO, DYLAN [facility] RAD R19.00 [id number] 09/12/2016 12:07:00 09/12/2016 23:59:59 CLS Outpatient NELSON DO, DYLAN [facility] RAD GENERALIZED ABD PAIN R10.84 [id number] 08/18/2016 15:16:00 08/18/2016 23:59:59 CLS Outpatient NELSON DO, DYLAN [facility] RAD SCREENING [id number] 02/04/2016 13:37:00 02/04/2016 23:59:59 CLS Outpatient NELSON DO, DYLAN [facility] RAD NICOTINE DEPENDENCE [id number] 07/03/2015 13:56:00 07/03/2015 23:59:59 CLS Outpatient NELSON DO, DYLAN [facility] RAD NICOTINE DEPENDENCE [id number] 03/02/2015 12:44:00 03/02/2015 23:59:59 CLS Outpatient NELSON DO, DYLAN [facility] RAD FOLLOW UP [id number] 10/15/2014 13:47:00 10/15/2014 23:59:59 CLS Outpatient NELSON DO, DYLAN [facility] RAD FOLLOW UP [id number] 05/20/2014 13:34:00 05/20/2014 23:59:59 CLS Outpatient NELSON DO, DYLAN [facility] RAD FOLLOW UP -6 MONTH [id number] 02/14/2014 09:31:00 02/14/2014 14:00:00 DIS Outpatient GIULIA ANDERSON DPM [facility] HAMMERTOE 2ND; EXOSTOSIS RT. 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 [id number] 02/10/2014 13:03:00 02/10/2014 23:59:59 CLS Outpatient MONICA QUEEN, GIULIA P [facility] PREOP HAMMERTOE 2ND; EXOSTOSIS RT. 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 [id number] 08/20/2013 07:21:00 08/20/2013 23:59:59 CLS Outpatient OMAR DO DYLAN [facility] RAD ABNORMAL MAMMO [id number] 12/18/2012 10:48:00 12/18/2012 15:15:00 DIS Outpatient KEN NICOLE DO [facility] FAMILY HISTORY OF COLON CANCER [id number] 12/12/2012 11:55:00 12/12/2012 23:59:59 CLS Outpatient KEN NICOLE DO [facility] PREOP FAMILY HISTORY OF COLON CANCER [id number] 08/28/2012 13:25:00 08/28/2012 23:59:59 CLS Outpatient OMAR STAUFFER DYLAN [facility] RAD ABN MAMMO [id number] 08/10/2012 07:27:00 08/10/2012 23:59:59 CLS Outpatient NELSON DO DYLAN [facility] RAD SCREENING [id number] 04/14/2017 08:45:00 PRISCILLA MURPHY MD, COLLIN Toussaint [facility] RIGHT INTRANASAL LESION [id number] 08/25/2011 09:30:00 Document Registration [id number] 08/08/2011 13:08:00 Document Registration [id number] 04/27/2011 10:22:00 Document Registration [id number] 02/15/2010 13:40:00 Document Registration [id number] 01/22/2010 12:29:00 Document Registration
[2017-04-14 08:23] VITALS: BP 150/63
[2017-04-14] MEDS ORDERED: MUPIROCIN 2% OINT 22 GM (BACTROBAN) TUBE ONE (08:26)
[2017-04-14] MEDS ORDERED: proPOfol 200 MG/20 ML (DIPRIVAN) VIAL IV ONE (08:32)
[2017-04-14] MEDS ORDERED: ROCURONIUM 50 MG/5 ML (ZEMURON) VIAL IV ONE (08:32)
[2017-04-14] MEDS ORDERED: LIDOCAINE PF 2% 5 ML (XYLOCAINE) VIAL ONE (08:32)
[2017-04-14] MEDS ORDERED: ONDANSETRON 4 MG/2 ML (SDV) Z0FRAN ONE (08:32)
[2017-04-14] MEDS ORDERED: MIDAZOLAM 2 MG/2 ML (VERSED) VIAL ONE (08:33)
[2017-04-14] MEDS ORDERED: DEXAMETHASONE 10 MG/ML (DECADRON) 1 ML VIAL ONE (08:33)
[2017-04-14] MEDS ORDERED: fentaNYL INJECTION 100 MCG/2 ML AMP ONE (08:33)
[2017-04-14] MEDS ORDERED: SEVOFLURANE (ULTANE) 15 ML INHAL SOLN ONE ×5 (08:33→11:44)
[2017-04-14] MEDS ORDERED: FAMOTIDINE 20MG/2ML IV (PEPCID) IV ONE (08:45)
[2017-04-14] MEDS ORDERED: ONDANSETRON 4 MG/2 ML (SDV) Z0FRAN IV ONE (08:45)
[2017-04-14] MEDS: LACTATED RINGERS 1,000 ML IV PRN ×2 (08:51→11:50)
--- NOTE | 2017-04-14 10:33 | Progress Note-Pre Operative ---
Pre-Operative Progress Note H&P Reviewed The H&P was reviewed, patient examined and no changes noted. Date Seen by Provider: Apr 14, 2017 Time Seen by Provider: 10:30 Date H&P Reviewed: Apr 14, 2017 Time H&P Reviewed: :30 Pre-Operative Diagnosis: Right Intranasal Lesion COLLIN MURPHY MD Apr 14, 2017 10:32 am
[2017-04-14] MEDS: LIDOCAINE/EPI 1%-1:200,000 (XYLOCAINE) 10 ML VIAL ONE ×2 (11:24→11:25)
[2017-04-14] MEDS ORDERED: HYDROcodone/APAP 5 MG/325 MG (LORTAB) TAB PO PRN (11:30)
[2017-04-14] MEDS ORDERED: ACETAMINOPHEN 325 MG TABLET/CAPLET (TYLENOL) PO PRN (11:30)
--- NOTE | 2017-04-14 11:30 | Progress Note-Post Operative ---
Post-Operative Progess Note Surgeon (s)/Director Of Psychiatry (s) Surgeon COLLIN MURPHY MD Director Of Psychiatry n/a Pre-Operative Diagnosis Right Intranasal Lesion Post-Operative Diagnosis same Post-Op Procedure Note Date of Procedure: Apr 14, 2017 Name of Procedure Performed: Excision of Right Intranasal Lesion with Margin Control and [id number] closure Description & Findings Description and Findings: n/a Anesthesia Type get Estimated Blood Loss minimal Packing none. Specimen(s) collected/removed right intranasal lesion with frozen sections COLLIN MURPHY MD Apr 14, 2017 11:30 am
[2017-04-14] MEDS ORDERED: NEOSTIGMINE (BLOXIVERZ ) 1 MG/1ML 10 ML VIAL ONE (11:39)
[2017-04-14] MEDS ORDERED: GLYCOPYRROLATE 0.2 MG/ML (ROBINUL) 2 ML VIAL ONE (11:39)
[2017-04-14] MEDS ORDERED: morphine INJ 10 MG/ML 1ML (SYR OR VIAL) ONE (11:49)
[2017-04-14] MEDS ORDERED: ONDANSETRON 4 MG/2 ML (SDV) Z0FRAN IVP PRN (12:00)
[2017-04-14] MEDS ORDERED: morphine INJ 10 MG/ML 1ML (SYR OR VIAL) IVP PRN (12:00)
[2017-04-14 12:25] VITALS: BP 117/85
[2017-04-14] MEDS ORDERED: HYDR-3812 PO ×2 (12:49→12:54)
[2017-04-14 12:55] VITALS: BP 129/58
[2017-04-14 13:25] VITALS: BP 111/59
== END 2017-04-14 13:30 | disposition home or self-care (01) ==
LOC: SDC 08:05
PROVIDERS: ATTEND Otolaryngology Otolaryngology/Facial Plastic Surgery
DX: L57.0 Actinic keratosis (principal); F17.210 Nicotine dependence, cigarettes, uncomplicated; G56.91 Unspecified mononeuropathy of right upper limb

== ENCOUNTER → 2017-09-13 | Outpatient (CLI) | payer MEDICARE, OTHER ==
[~2017-09-13] MED LIST changes: +HYDR-3812 PO; -HYDR-3816 PO
--- NOTE | 2017-09-13 14:28 | Diagnostic Imaging Report ---
INDICATION: Six-month followup of right breast architectural distortion. COMPARISON: Right mammogram from 03/06/2017 and bilateral mammogram from 08/18/2016. TECHNIQUE: 2D and 3D bilateral diagnostic mammography was performed with CAD. FINDINGS: Both breasts are heterogeneously dense, limiting the sensitivity of mammography. The overall parenchymal pattern appears to be stable. There are scattered benign calcifications bilaterally. No discrete mass is detected. The area of questionable architectural distortion in the upper right breast appears less prominent. The patient does report having slight right nipple retraction over the last few weeks. No definite cause is identified. The axillae are unremarkable. IMPRESSION: No mammographic features suspicious for malignancy are identified. Even so, sonographic interrogation of the retroareolar right breast is recommended due to the patient reporting recent nipple retraction. ACR BI-RADS Category 0: Incomplete. (Needs additional imaging evaluation). Result letter will be mailed to the patient. Note: At least 10% of breast cancer is not imaged by mammography. Dictated by: Dictated on workstation # [id number]
--- NOTE | 2017-09-13 14:30 | Diagnostic Imaging Report ---
INDICATION: Right nipple retraction. FINDINGS: Sonographic interrogation of the retroareolar right breast was performed. There is a circumscribed hypoechoic nodule in the retroareolar location slightly lateral measuring 6 mm x 7 mm x 6 mm. There appears to be posterior acoustic enhancement. This may represent a small complex cyst. No internal vascularity is present. No other masses are seen. IMPRESSION: There is a circumscribed hypoechoic subcentimeter nodule in the retroareolar right breast which has benign features. A followup right breast ultrasound in 6 months is recommended to confirm stability. ACR BI-RADS Category 3: Probably benign findings. Dictated by: Dictated on workstation # [id number]
== END ==
LOC: RAD 13:25
PROVIDERS: ATTEND Internal Medicine
DX: N63.10 Unspecified lump in the right breast, unspecified quadrant (principal); N64.53 Retraction of nipple; R92.0 Mammographic microcalcification found on diagnostic imaging of breast; Z98.890 Other specified postprocedural states
CPT/HCPCS: 77066

== ENCOUNTER → 2018-04-25 | Outpatient (CLI) | payer MEDICARE, OTHER ==
[~2018-04-25] MED LIST changes: +TRAZ-189 PO; -TRAZ-28 PO
--- NOTE | 2018-04-25 19:39 | Diagnostic Imaging Report ---
INDICATION: Six-month followup of right breast nodule. Correlation is made with prior right breast ultrasound from 09/13/2017. FINDINGS: Previously noted circumscribed hypoechoic nodule in the retroareolar right breast is again noted and appear stable at 6 mm x 5 mm x 6 mm. This demonstrates posterior acoustic enhancement. No internal vascularity is seen. This does have benign features. IMPRESSION: Stable circumscribed hypoechoic nodule retroareolar right breast when compared with examination from 09/13/2017. Patient should return in 6 months for additional followup to confirm stability. ACR BI-RADS Category 3: Probably benign findings. Dictated by: Dictated on workstation # [id number]
== END ==
LOC: RAD 09:42
PROVIDERS: ATTEND Internal Medicine
DX: N63.10 Unspecified lump in the right breast, unspecified quadrant (principal); R92.0 Mammographic microcalcification found on diagnostic imaging of breast

== ENCOUNTER 2018-05-15 13:42 | Outpatient (CLI) | payer MEDICARE, OTHER ==
[~2018-05-15] VITALS: Ht 165.1 cm; Wt 56.7 kg
[~2018-05-15 13:42] MED LIST changes: +MELO15TA39 PO
== END 2018-05-15 14:04 | disposition home or self-care (01) ==
LOC: PREOP 13:42
PROVIDERS: ATTEND Obstetrics & Gynecology
DX: Z01.818 Encounter for other preprocedural examination (principal)

== ENCOUNTER 2018-05-17 07:06 | Day surgery (SDC) | payer MEDICARE, OTHER ==
[~2018-05-17] VITALS: Ht 165.1 cm; Wt 56.7 kg
--- OUTSIDE RECORDS SUMMARY | 2018-05-17 07:12 | XMS REPORT | Continuity of Care Document ---
Author Author [facility] Organization [facility] Address Unknown Phone Unavailable Allergies Active Description Code Type Severity Reaction Onset Reported/Identified Relationship to Patient Clinical Status Yes No Known Drug Allergies [id number] Drug Allergy Unknown N/A 10/27/2016 Medications There [...] Ot 793.80 07/03/2015 Ot 473.2 07/03/2015 OMAR DO, DYLAN Ot V76.12 07/03/2015 OMAR STAUFFER, DYLAN Ot 610.0 07/03/2015 KEN NICOLE DO Ot V72.84 07/03/2015 OMAR DO, DYLAN Ot 786.2 07/03/2015 OMAR DO, DYLAN Ot 793.89 07/03/2015 MONICA DPGIULIA Mercado Ot 355.6 07/03/2015 GIULIA ANDERSON DPM Ot 726.91 07/03/2015 GIULIA ANDERSON DPM Ot 735.4 07/03/2015 MONICA DPM, GIULIA P Ot V72.84 07/03/2015 MONICA DPJess, GIULIA P Ot V74.8 07/03/2015 OMAR STAUFFER, DYLAN Ot 793.80 07/03/2015 OMAR STAUFFER, DYLAN Ot 793.80 07/03/2015 OMAR STAUFFER, DYLAN Ot R92.2 07/07/2015 OMAR STAUFFER DYLAN Ot F17.210 07/07/2015 OMAR STAUFFER DYLAN Ot R91.1 07/22/2015 NELSON DO, DYLAN Ot F17.210 NICOTINE DEPENDENCE, CIGARETTES, UNCOMPL 07/22/2015 NELSON DO, DYLAN Ot R91.1 SOLITARY PULMONARY NODULE 02/05/2016 Ot [...] 610.0 SOLITARY CYST OF BREAST 10/26/2016 KEN NICOLE DO Ot V72.84 EXAM PRE-OPERATIVE NOS 10/26/2016 [...] DO Ot E78.00 PURE HYPERCHOLESTEROLEMIA, UNSPECIFIED 10/26/2016 HERMAN NELSON DOI Ot I10 ESSENTIAL (PRIMARY) HYPERTENSION 10/26/2016 DYLAN NELSON DO Ot R10.84 GENERALIZED ABDOMINAL PAIN 10/26/2016 DYLAN NELSON DO Ot R19.04 LEFT LOWER QUADRANT ABDOMINAL SWELLING, 10/26/2016 DYLAN NELSON DO Ot R19.09 OTHER INTRA-ABDOMINAL AND PELVIC SWELLIN 10/27/2016 COLLIN WHITE DO Ot R10.2 PELVIC AND PERINEAL PAIN 10/27/2016 COLLIN WHITE DO Ot Z01.812 ENCOUNTER FOR PREPROCEDURAL LABORATORY E 10/27/2016 FENECH DO, COLLIN S Ot Z11.2 ENCOUNTER FOR SCREENING FOR OTHER BACTER 11/18/2016 COLLIN WHITE DO S Ot F17.210 NICOTINE DEPENDENCE, CIGARETTES, UNCOMPL 11/18/2016 COLLIN WHITE DO S Ot N83.201 UNSPECIFIED OVARIAN CYST, RIGHT SIDE 11/18/2016 COLLIN WHITE DO S Ot N83.202 UNSPECIFIED OVARIAN CYST, LEFT SIDE 01/09/2017 COLLIN EDMONDSON MD Ot M17.11 UNILATERAL PRIMARY OSTEOARTHRITIS, RIGHT 01/26/2017 DYLAN NELSON DO Ot J84.10 PULMONARY FIBROSIS, UNSPECIFIED 01/26/2017 DYLAN NELSON DO Ot R91.1 SOLITARY PULMONARY NODULE 03/29/2017 DYLAN NELSON DO Ot N64.89 OTHER SPECIFIED DISORDERS OF BREAST 03/29/2017 DYLAN NELSON DO Ot R92.0 MAMMOGRAPHIC MICROCALCIFICATION FOUND ON 04/11/2017 COLLIN MURPHY MD Ot J34.89 OTHER SPECIFIED DISORDERS OF NOSE AND NA 04/11/2017 COLLIN MURPHY MD Ot Z01.812 ENCOUNTER FOR PREPROCEDURAL LABORATORY E 04/11/2017 COLLIN MURPHY MD Ot Z11.2 ENCOUNTER FOR SCREENING FOR OTHER BACTER 04/14/2017 COLLIN MURPHY MD Ot F17.210 NICOTINE DEPENDENCE, CIGARETTES, UNCOMPL 04/14/2017 COLLIN MURPHY MD Ot G56.91 UNSPECIFIED MONONEUROPATHY OF RIGHT UPPE 04/14/2017 COLLIN MURPHY MD Ot L57.0 ACTINIC KERATOSIS 04/18/2017 COLLIN MURPHY MD Ot F17.210 NICOTINE DEPENDENCE, CIGARETTES, UNCOMPL 04/18/2017 COLLIN MURPHY MD Ot G56.91 UNSPECIFIED MONONEUROPATHY OF RIGHT UPPE 04/18/2017 COLLIN MURPHY MD Ot L57.0 ACTINIC KERATOSIS 09/14/2017 DYLAN NELSON DO Ot N63.10 UNSPECIFIED LUMP IN THE RIGHT BREAST, UN 09/14/2017 DYLAN NELSON DO Ot N64.53 RETRACTION OF NIPPLE 09/14/2017 DYLAN NELSON DO Ot R92.0 MAMMOGRAPHIC MICROCALCIFICATION FOUND ON 09/14/2017 DYLAN NELSON DO Ot Z98.890 OTHER SPECIFIED POSTPROCEDURAL STATES 09/14/2017 DYLAN NELSON DO Ot N63.10 UNSPECIFIED LUMP IN THE RIGHT BREAST, UN 09/14/2017 NELSON DO, DYLAN Ot N64.53 RETRACTION OF NIPPLE 09/14/2017 NELSON DO, DYLAN Ot R92.0 MAMMOGRAPHIC MICROCALCIFICATION FOUND ON 09/14/2017 NELSON DO, DYLAN Ot Z98.890 OTHER SPECIFIED POSTPROCEDURAL STATES 09/19/2017 NELSON DO, DYLAN Ot N63.10 UNSPECIFIED LUMP IN THE RIGHT BREAST, UN 09/19/2017 NELSON DO, DYLAN Ot N64.53 RETRACTION OF NIPPLE 09/19/2017 NELSON DO, DYLAN Ot R92.0 MAMMOGRAPHIC MICROCALCIFICATION FOUND ON 09/19/2017 NELSON DO, DYLAN Ot Z98.890 OTHER SPECIFIED POSTPROCEDURAL STATES 2017 NELSON DO, DYLAN Ot N63.10 UNSPECIFIED LUMP IN THE RIGHT BREAST, UN 2017 NELSON DO, DYLAN Ot N64.53 RETRACTION OF NIPPLE 2017 NELSON DO, DYLAN Ot R92.0 MAMMOGRAPHIC MICROCALCIFICATION FOUND ON 2017 NELSON DO, DYLAN Ot Z98.890 OTHER SPECIFIED POSTPROCEDURAL STATES 11/28/2017 FENECH DO, COLLIN S Ot K43.2 INCISIONAL HERNIA WITHOUT OBSTRUCTION OR 12/22/2017 FENECH DO, COLLIN S Ot K43.2 INCISIONAL HERNIA WITHOUT OBSTRUCTION OR 03/05/2018 KEN NICOLE DO Ot V72.84 EXAM PRE-OPERATIVE NOS 03/05/2018 OMAR STAUFFER DYLAN Ot 786.2 COUGH 03/05/2018 OMAR STAUFFER DYLAN Ot 793.89 OTH (ABN) FINDINGS ON RADIOLOGICAL EXAMI 03/05/2018 MONICA DPJess, GIULIA P Ot 355.6 PLANTAR NERVE LESION 03/05/2018 MONICA DPJess, GIULIA P Ot 726.91 EXOSTOSIS, SITE NOS 03/05/2018 MONICA DPJess, GIULIA P Ot 735.4 OTHER HAMMER TOE 03/05/2018 MONICA DPJess, GIULIA P Ot V72.84 EXAM PRE-OPERATIVE NOS 03/05/2018 MONICA DPJess, GIULIA Toussaint Ot V74.8 SCREEN-BACTERIAL DIS NEC 03/05/2018 OMAR STAUFFER DYLAN Ot 793.80 UNSPEC ABNORMAL MAMMOGRAM 03/05/2018 NELSON DO, DYLAN Ot 793.80 UNSPEC ABNORMAL MAMMOGRAM 03/05/2018 OMAR STAUFFER DYLAN Ot R92.2 INCONCLUSIVE MAMMOGRAM 03/05/2018 OMAR STAUFFER DYLAN Ot F17.210 NICOTINE DEPENDENCE, CIGARETTES, UNCOMPL 03/05/2018 OMAR STAUFFER DYLAN Ot R91.1 SOLITARY PULMONARY NODULE 03/05/2018 OMAR STAUFFER DYLAN Ot F17.200 NICOTINE DEPENDENCE, UNSPECIFIED, UNCOMP 03/05/2018 OMAR STAUFFER DYLAN Ot R91.8 OTHER NONSPECIFIC ABNORMAL FINDING OF EVA 03/05/2018 OMAR STAUFFER DYLAN Ot R92.8 OTH ABN AND INCONCLUSIVE FINDINGS ON DX 03/05/2018 OMAR STAUFFER DYLAN Ot Z12.31 ENCNTR SCREEN MAMMOGRAM FOR MALIGNANT NE 03/05/2018 OMAR STAUFFER DYLAN Ot E78.00 PURE HYPERCHOLESTEROLEMIA, UNSPECIFIED 03/05/2018 OMAR STAUFFER DYLAN Ot I10 ESSENTIAL (PRIMARY) HYPERTENSION 03/05/2018 OMAR STAUFFER DYLAN Ot R10.84 GENERALIZED ABDOMINAL PAIN 03/05/2018 OMAR STAUFFER DYLAN Ot R19.04 LEFT LOWER QUADRANT ABDOMINAL SWELLING, 03/05/2018 OMAR STAUFFER DYLAN Ot R19.09 OTHER INTRA-ABDOMINAL AND PELVIC SWELLIN 03/05/2018 OMAR STAUFFER DYLAN Ot J84.10 PULMONARY FIBROSIS, UNSPECIFIED 03/05/2018 OMAR STAUFFER DYLAN Ot R91.1 SOLITARY PULMONARY NODULE 03/05/2018 DELVIS PALUMBO, COLLIN Toussaint Ot M17.11 UNILATERAL PRIMARY OSTEOARTHRITIS, RIGHT 03/05/2018 OMAR STAUFFER DYLAN Ot N64.89 OTHER SPECIFIED DISORDERS OF BREAST 03/05/2018 OMAR STAUFFER DYLAN Ot R92.0 MAMMOGRAPHIC MICROCALCIFICATION FOUND ON 03/05/2018 OMAR STAUFFER DYLAN Ot N63.10 UNSPECIFIED LUMP IN THE RIGHT BREAST, UN 03/05/2018 OMAR STAUFFER DYLAN Ot N64.53 RETRACTION OF NIPPLE 03/05/2018 OMAR STAUFFER DYLAN Ot R92.0 MAMMOGRAPHIC MICROCALCIFICATION FOUND ON 03/05/2018 OMAR STAUFFER DYLAN Ot Z98.890 OTHER SPECIFIED POSTPROCEDURAL STATES 03/05/2018 COLLIN WHITE DO Ot K43.2 INCISIONAL HERNIA WITHOUT OBSTRUCTION OR 04/26/2018 NELSON DO, DYLAN Ot N63.10 UNSPECIFIED LUMP IN THE RIGHT BREAST, UN 04/26/2018 NELSON DO, DYLAN Ot R92.0 MAMMOGRAPHIC MICROCALCIFICATION FOUND ON 05/01/2018 NELSON DO, DYLAN Ot N63.10 UNSPECIFIED LUMP IN THE RIGHT BREAST, UN 05/01/2018 NELSON DO, DYLAN Ot R92.0 MAMMOGRAPHIC MICROCALCIFICATION FOUND ON 05/09/2018 NELSON DO, DYLAN Ot N63.10 UNSPECIFIED LUMP IN THE RIGHT BREAST, UN 05/09/2018 NELSON DO, DYLAN Ot R92.0 MAMMOGRAPHIC MICROCALCIFICATION FOUND ON 05/15/2018 FENECH DO, COLLIN S Ot Z01.818 ENCOUNTER FOR OTHER PREPROCEDURAL EXAMIN 05/15/2018 FENECH DO, COLLIN S Ot Z01.818 ENCOUNTER FOR OTHER PREPROCEDURAL EXAMIN 05/15/2018 FENECH DO, COLLIN S Ot Z01.818 ENCOUNTER FOR OTHER PREPROCEDURAL EXAMIN 05/16/2018 FENECH DO, COLLIN S Ot Z01.818 ENCOUNTER FOR OTHER PREPROCEDURAL EXAMIN Procedures There is no data. Results Test [...] ABO+Rh group AP NRG Transfusion band number [id number] NRG Blood group antibody screen NEGATIVE NRG [...] Status Pt. Type Provider Facility Loc./Unit Complaint [id number] 05/15/2018 13:42:00 05/15/2018 14:04:00 DIS Outpatient COLLIN WHITE DO [facility] PREOP RIGHT INCISIONAL HERNIA REPAIR [id number] 04/19/2018 15:11:00 04/19/2018 23:59:59 CLS Outpatient DYLAN NELSON DO [facility] RAD MICROCALCIFICATION [id number] 11/27/2017 15:12:00 11/27/2017 23:59:59 CLS Outpatient COLLIN WHITE DO [facility] RAD HERNIA,INCISIONAL [id number] 09/13/2017 13:25:00 09/13/2017 23:59:59 CLS Outpatient NELSON DO DYLAN [facility] RAD MAMMOGRAPHIC MICROCALCIFICATION FOUND ON DX IMAGIN [id number] 08/22/2017 07:28:00 08/22/2017 23:59:59 CLS Preadmit NELSON DO DYLAN [facility] RAD SCREENING [id number] 04/14/2017 08:05:00 04/14/2017 13:30:00 DIS Outpatient COLLIN MURPHY MD [facility] SDC RIGHT INTRANASAL LESION [id number] 04/11/2017 13:47:00 04/11/2017 14:30:00 DIS Outpatient COLLIN MURPHY MD [facility] PREOP RIGHT INTRANASAL LESION [id number] 03/06/2017 12:12:00 03/06/2017 23:59:59 CLS Outpatient OMAR DO DYLAN [facility] RAD R92.0 MAMMOGRAPHIC MICROCALCIFICATION ON BREAST [id number] 01/03/2017 13:17:00 01/03/2017 23:59:59 CLS Outpatient OMAR STAUFFER DYLAN [facility] RAD LUNG NODULE R91.1 [id number] 12/14/2016 08:11:00 12/14/2016 23:59:59 CLS Outpatient COLLIN EDMONDSON MD [facility] RAD M17.9 [id number] 11/17/2016 06:10:00 11/18/2016 10:30:00 DIS Outpatient COLLIN WHITE DO [facility] SDC PELVIC PRESSURE, RIGHT ADNEXAL MASS [id number] 10/27/2016 12:06:00 10/27/2016 14:12:00 DIS Outpatient COLLIN WHITE DO [facility] PREOP ROBOTIC HYSTERECTOMY WITH BSO [id number] 09/20/2016 13:53:00 09/20/2016 23:59:59 CLS Outpatient NELSON DO DYLAN [facility] RAD R19.00 [id number] 09/12/2016 12:07:00 09/12/2016 23:59:59 CLS Outpatient OMAR DO DYLAN [facility] RAD GENERALIZED ABD PAIN R10.84 [id number] 08/18/2016 15:16:00 08/18/2016 23:59:59 CLS Outpatient NELSON DO, DYLAN [facility] RAD SCREENING [id number] 02/04/2016 13:37:00 02/04/2016 23:59:59 CLS Outpatient NELSON DO, YDLAN [facility] RAD NICOTINE DEPENDENCE [id number] 07/03/2015 13:56:00 07/03/2015 23:59:59 CLS Outpatient NELSON DO, DYLAN [facility] RAD NICOTINE DEPENDENCE [id number] 03/02/2015 12:44:00 03/02/2015 23:59:59 CLS Outpatient NELSON DO, DYLAN [facility] RAD FOLLOW UP [id number] 10/15/2014 13:47:00 10/15/2014 23:59:59 CLS Outpatient NELSON DO, DYLAN [facility] RAD FOLLOW UP [id number] 05/20/2014 13:34:00 05/20/2014 23:59:59 CLS Outpatient NELSON DO, DYLAN [facility] RAD FOLLOW UP -6 MONTH [id number] 02/14/2014 09:31:00 02/14/2014 14:00:00 DIS Outpatient GIULIA ANDERSON DPM [facility] [address]; EXOSTOSIS RT. 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 [id number] 08/20/2013 07:21:00 08/20/2013 23:59:59 CLS Outpatient NELSON DO, DYLAN [facility] RAD ABNORMAL MAMMO [id number] 12/18/2012 10:48:00 12/18/2012 15:15:00 DIS Outpatient KEN NICOLE DO [facility] FAMILY HISTORY OF COLON CANCER [id number] 12/12/2012 11:55:00 12/12/2012 23:59:59 CLS Outpatient KEN NICOLE DO [facility] PREOP FAMILY HISTORY OF COLON CANCER [id number] 08/28/2012 13:25:00 08/28/2012 23:59:59 CLS Outpatient DYLAN NELSON DO [facility] RAD ABN MAMMO [id number] 08/10/2012 07:27:00 08/10/2012 23:59:59 CLS Outpatient DYLAN NELSON DO [facility] RAD SCREENING [id number] 05/17/2018 09:00:00 PEN Preadmit COLLIN WHITE DO S [facility] SDC RIGHT INCISIONAL HERNIA [id number] 08/25/2011 09:30:00 Document Registration [id number] 08/08/2011 13:08:00 Document Registration [id number] 04/27/2011 10:22:00 Document Registration [id number] 02/15/2010 13:40:00 Document Registration [id number] 01/22/2010 12:29:00 Document Registration [email or web address] 10/15/2014 14:16:10 ACT Document Registration
[2018-05-17] MEDS ORDERED: LACTATED RINGERS 1,000 ML IV PRN ×2 (07:24→08:39)
--- NOTE | 2018-05-17 07:26 | Progress Note-Pre Operative ---
Pre-Operative Progress Note H&P Reviewed The H&P was reviewed, patient examined and no changes noted. Date Seen by Provider: May 17, 2018 Time Seen by Provider: 08:00 Date H&P Reviewed: May 17, 2018 Time H&P Reviewed: 08:00 Pre-Operative Diagnosis: Incisional hernia COLLIN WHITE DO May 17, 2018 07:26
[2018-05-17 07:30] VITALS: BP 131/60
[2018-05-17] MEDS ORDERED: ceFAZolin INJECTION 1,000 MG in NS (IVPB) 50 ML IV ONE (07:30)
[2018-05-17] MEDS ORDERED: MIDAZOLAM 2 MG/2 ML (VERSED) VIAL ONE (07:38)
[2018-05-17] MEDS ORDERED: fentaNYL INJECTION 100 MCG/2 ML AMP ONE (07:38)
[2018-05-17] MEDS ORDERED: CATHETER FLUSH 10 ML SYR IV PRN (08:00)
[2018-05-17] MEDS ORDERED: ceFAZolin 1,000 MG/SWFI 10 ML IV PUSH IV ONE ×2 (08:00)
[2018-05-17 08:10] LABS: BASOPHILS % (AUTO) 0 % (0-10); EOSINOPHILS # (AUTO) 0.2 10^3/uL (0.0-0.3); EOSINOPHILS % (AUTO) 2 % (0-10); HEMATOCRIT 37 % (35-52); HEMOGLOBIN 12.5 G/DL (11.5-16.0); LYMPHOCYTES # (AUTO) 2.8 X 10^3 (1.0-4.0); LYMPHOCYTES % (AUTO) 21 % (12-44); MEAN CORPUSCULAR HEMOGLOBIN 32 PG (25-34); MEAN CORPUSCULAR HGB CONC 34 G/DL (32-36); MEAN CORPUSCULAR VOLUME 94 FL (80-99); MEAN PLATELET VOLUME 9.3 FL (7.4-10.4); MONOCYTES # (AUTO) 1.2 X 10^3 (0.0-1.0); MONOCYTES % (AUTO) 10 % (0-12); NEUTROPHILS # (AUTO) 8.9 X 10^3 (1.8-7.8); NEUTROPHILS % (AUTO) 68 % (42-75); PLATELET COUNT 399 10^3/uL (130-400); WHITE BLOOD COUNT 13.1 10^3/uL (4.3-11.0)
[2018-05-17] MEDS ORDERED: BUPIVACAINE 0.25% 30 ML (SENSORCAINE) VIAL ONE ×2 (08:23→08:54)
[2018-05-17] MEDS ORDERED: ONDANSETRON 4 MG/2 ML (SDV) Z0FRAN ONE (08:27)
[2018-05-17] MEDS ORDERED: LIDOCAINE PF 2% 5 ML (XYLOCAINE) VIAL ONE (08:27)
[2018-05-17] MEDS ORDERED: proPOfol 200 MG/20 ML (DIPRIVAN) VIAL IV ONE (08:27)
[2018-05-17] MEDS ORDERED: SEVOFLURANE (ULTANE) 15 ML INHAL SOLN ONE (08:27)
[2018-05-17] MEDS ORDERED: DEXAMETHASONE 10 MG/ML (DECADRON) 1 ML VIAL ONE (08:27)
[2018-05-17] MEDS ORDERED: D5 LR IV SOLUTION 1,000 ML IV SCH (08:29)
[2018-05-17] MEDS ORDERED: ONDANSETRON 4 MG/2 ML (SDV) Z0FRAN IVP PRN ×2 (08:30→09:30)
[2018-05-17] MEDS ORDERED: HYDROcodone/APAP 5 MG/325 MG (LORTAB) TAB PO PRN (08:30)
[2018-05-17] MEDS ORDERED: KETOROLAC 30 MG/ML VIAL IVP ONE (08:30)
--- NOTE | 2018-05-17 08:32 | Discharge Inst-Women's Service ---
Discharge Inst-Women's Serv Depart Medication/Instructions New, Converted or Re-Newed RX: RX on Chart Consults/Follow Up Additional Follow Up: Yes Orders/Referrals Dr. Seals in7-10 days Activity Activity: Activity as Tolerated Driving Instructions: You May Drive (do not drive while taking hydrocodone) NO SMOKING: NO SMOKING Diet Discharge Diet: No Restrictions Symptoms to Report to : Bleeding Excessive, Pain Increased, Fever Over 101 Degrees F, Questions/Concerns For Any Problems or Questions: Contact Your Physician Skin/Wound Care Infection Signs and Symptoms: Increased Redness, Foul Odor of Wound, Increased Drainage, Skin Itchy or Has a Rash, Increased Swelling, Temperature Above 101 F Operative Area Clean and Dry: Keep Incision Clean/Dry Stitches/[place]/Dermabond: Dermabond, Care of Stitches Bathing Instructions: COLLIN Portillo DO May 17, 2018 08:32
[2018-05-17] MEDS ORDERED: ACHD5005 PO (08:33)
[2018-05-17] MEDS ORDERED: ROCURONIUM 10 MG/ML 5 ML SYRINGE IV ONE (08:39)
[2018-05-17] MEDS ORDERED: NEOSTIGMINE 1 MG/ML 5 ML SYRINGE ONE (08:42)
[2018-05-17] MEDS ORDERED: GLYCOPYRROLATE 0.2 MG/ML (ROBINUL) 2 ML VIAL ONE (08:42)
[2018-05-17] MEDS ORDERED: morphine INJ 10 MG/ML 1ML (SYR OR VIAL) IVP ONE (09:30)
[2018-05-17 10:20] VITALS: BP 148/63
[2018-05-17 10:50] VITALS: BP 154/74
[2018-05-17 11:20] VITALS: BP 175/64
[2018-05-17 11:25] VITALS: BP 175/64
--- NOTE | 2018-05-17 11:55 | OPERATIVE REPORT ---
DATE OF SERVICE: PREOPERATIVE DIAGNOSIS: A 77-year-old female with incisional hernia. POSTOPERATIVE DIAGNOSIS: A 77-year-old female with incisional hernia. PROCEDURE: Incisional hernia repair. SURGEON: Collin White DO ANESTHESIA: General endotracheal. ESTIMATED BLOOD LOSS: Minimal. URINE OUTPUT: Not recorded. FLUIDS: A 400 mL of lactated Ringer solution. FINDINGS: Approximately 3 x 3 cm incisional hernia from previous existing laparoscopic trocar site. INDICATION FOR PROCEDURE: This 77-year-old female is a patient of mine that had undergone a robotic hysterectomy approximately 8 months ago. At that point, she was doing well postoperatively and had no concerns. She followed up about three months later with a complaint of a bulge over the right trocar site. We initially thought maybe it was scar tissue; however, over time the bulge became slightly larger. CT revealed that there was an incisional hernia in that area that was only containing omental fat. The patient's was having other health issues at that time and she opted to wait as it was not terribly uncomfortable for her. However, the past three to four months had become more uncomfortable. The patient's 's health had improved and she wanted to proceed with repair of this. I discussed with the patient in detail in the office extending the incision a little bit larger than the trocar site allowing me to isolate the fascia and reapproximate it. After all of this was discussed with the patient, all of her questions were answered pertaining to the procedure, its postoperative expectations, recovery timeframe as well as risk of the procedure. Consent was obtained in the preoperative area and the patient was taken to the operating room. OPERATIVE REPORT IN DETAIL: Once in the operating room, anesthesia was found to be adequate. She was placed in the supine position with a slight leftward tilt, prepped and draped in normal sterile fashion. I then make an incision through a previously existing scar using a knife and extended approximately 2 to 3 cm larger than the initial trocar site. This allows me to dissect down to the fascia and isolate the fascia. Once both aspects of the fascia are isolated, I reapproximated using 0 Vicryl suture in a running fashion, after which I could not digitally find or palpate any further herniation through the fascia. I then reapproximated the subcutaneous tissue using a 2-0 Vicryl suture in interrupted fashion. Skin was reapproximated using 4-0 Monocryl in a running subcuticular. Dermabond was applied to the incision and sterile dressing is adhesive white tape. Anesthesia does perform a TAP block in the area for postoperative pain management and the skin of the area is infiltrated using 0.25% Marcaine. The patient tolerated the procedure well and was taken to recovery area in stable condition. Lap and sponge counts were correct at the end of the procedure. Instrument counts were correct as well. Job ID: [id number] DocumentID: [id number] Dictated Date: 05/17/2018 09:31:32 Felt Finishing Supervisor Date: 05/17/2018 11:54:05 Dictated By: COLLIN WHITE DO
--- NOTE | 2018-05-17 13:49 | Anesthesia-General Post-Op ---
General Patient Condition Mental Status/LOC: Same as Preop Cardiovascular: Satisfactory Nausea/Vomiting: Absent Respiratory: Satisfactory Pain: Controlled Complications: Absent Post Op Complications Complications None Follow Up Care/Instructions Patient Instructions None needed. Anesthesia/Patient Condition Patient Condition Patient is doing well, no complaints, stable vital signs, no apparent adverse anesthesia problems. No complications reported per nursing. JUAN FREY CRNA May 17, 2018 13:49
== END 2018-05-17 11:35 | disposition home or self-care (01) ==
LOC: SDC 07:06
PROVIDERS: ATTEND Obstetrics & Gynecology
DX: K43.2 Incisional hernia without obstruction or gangrene (principal); F17.210 Nicotine dependence, cigarettes, uncomplicated
CPT/HCPCS: 36415; 85025; 86850; 86900; 86901; 87081

== ENCOUNTER 2018-09-19 13:43 | Outpatient (CLI) | payer MEDICARE, OTHER ==
[~2018-09-19] VITALS: Ht 165.1 cm; Wt 54.5 kg
[~2018-09-19 13:43] MED LIST changes: +ACHD5005 PO; -TRAZ-189 PO; +TRAZ-222 PO
[2018-09-19 14:05] VITALS: BP 120/58
[2018-09-19 14:39] LABS: BASOPHILS % (AUTO) 0 % (0-10); EOSINOPHILS # (AUTO) 0.2 10^3/uL (0.0-0.3); EOSINOPHILS % (AUTO) 2 % (0-10); HEMATOCRIT 39 % (35-52); HEMOGLOBIN 12.8 G/DL (11.5-16.0); LYMPHOCYTES # (AUTO) 2.5 X 10^3 (1.0-4.0); LYMPHOCYTES % (AUTO) 24 % (12-44); MEAN CORPUSCULAR HEMOGLOBIN 31 PG (25-34); MEAN CORPUSCULAR HGB CONC 33 G/DL (32-36); MEAN CORPUSCULAR VOLUME 95 FL (80-99); MEAN PLATELET VOLUME 10.3 FL (7.4-10.4); MONOCYTES # (AUTO) 0.9 X 10^3 (0.0-1.0); MONOCYTES % (AUTO) 9 % (0-12); NEUTROPHILS # (AUTO) 6.5 X 10^3 (1.8-7.8); NEUTROPHILS % (AUTO) 64 % (42-75); PLATELET COUNT 293 10^3/uL (130-400); RED CELL DISTRIBUTION WIDTH 13.1 % (10.0-14.5); WHITE BLOOD COUNT 10.1 10^3/uL (4.3-11.0)
== END 2018-09-19 16:00 | disposition home or self-care (01) ==
LOC: PREOP 13:43
PROVIDERS: ATTEND Obstetrics & Gynecology
DX: Z01.812 Encounter for preprocedural laboratory examination (principal); Z11.2 Encounter for screening for other bacterial diseases; K40.91 Unilateral inguinal hernia, without obstruction or gangrene, recurrent
CPT/HCPCS: 36415; 85025; 86850; 86900; 86901; 87081

== ENCOUNTER 2018-09-27 06:08 | Day surgery (SDC) | payer MEDICARE, OTHER ==
[2018-09-27] VITALS (12 sets, daily range): BP systolic 115–155; BP diastolic 48–86
[~2018-09-27] VITALS: Ht 165.1 cm; Wt 54.5 kg
[2018-09-27] MEDS ORDERED: ceFAZolin INJECTION 1,000 MG in WATER (STERILE) FOR INJECTION 10 ML IV ONE (06:15)
[2018-09-27] MEDS: LACTATED RINGERS 1,000 ML IV PRN ×2 (06:35→09:15)
[2018-09-27] MEDS ORDERED: DEXAMETHASONE 10 MG/ML (DECADRON) 1 ML VIAL ONE (06:44)
[2018-09-27] MEDS ORDERED: proPOfol 200 MG/20 ML (DIPRIVAN) VIAL IV ONE (06:44)
[2018-09-27] MEDS ORDERED: ONDANSETRON 4 MG/2 ML (SDV) Z0FRAN ONE (06:44)
[2018-09-27] MEDS ORDERED: LIDOCAINE PF 2% 5 ML (XYLOCAINE) VIAL ONE (06:44)
[2018-09-27] MEDS ORDERED: MIDAZOLAM 2 MG/2 ML (VERSED) VIAL ONE (06:45)
[2018-09-27] MEDS ORDERED: fentaNYL INJECTION 100 MCG/2 ML AMP ONE (06:45)
[2018-09-27] MEDS ORDERED: BUPIVACAINE 0.25% 30 ML (SENSORCAINE) VIAL ONE (06:48)
[2018-09-27] MEDS ORDERED: ROCURONIUM 10 MG/ML 5 ML SYRINGE IV ONE (06:52)
--- NOTE | 2018-09-27 06:52 | Progress Note-Pre Operative ---
Pre-Operative Progress Note H&P Reviewed The H&P was reviewed, patient examined and no changes noted. Date Seen by Provider: Sep 27, 2018 Time Seen by Provider: 06:50 Date H&P Reviewed: Sep 27, 2018 Time H&P Reviewed: 06:50 Pre-Operative Diagnosis: Recurrent incisional hernia COLLIN WHITE DO Sep 27, 2018 06:52
[2018-09-27] MEDS ORDERED: ONDANSETRON 4 MG/2 ML (SDV) Z0FRAN IV ONE (07:00)
[2018-09-27] MEDS ORDERED: FAMOTIDINE 20MG/2ML IV (PEPCID) IV ONE (07:00)
[2018-09-27] MEDS ORDERED: D5 LR IV SOLUTION 1,000 ML IV SCH (07:17)
--- NOTE | 2018-09-27 07:23 | Discharge Inst-Women's Service ---
Discharge Inst-Women's Serv Depart Medication/Instructions New, Converted or Re-Newed RX: RX on Chart Consults/Follow Up Additional Follow Up: Yes Orders/Referrals Dr. Seals in 7-10 days Activity Activity: Activity as Tolerated Driving Instructions: No Driving for 1 Week NO SMOKING: NO SMOKING Nothing Inside Vagina: No Douching, No [place], No Tampons Diet Discharge Diet: No Restrictions Symptoms to Report to : Bleeding Excessive, Pain Increased, Fever Over 101 Degrees F, Vaginal Bleeding Increase, Questions/Concerns For Any Problems or Questions: Contact Your Physician Skin/Wound Care Stitches/[place]/Dermabond: Dermabond, Care of Stitches Bathing Instructions: COLLIN Portillo DO Sep 27, 2018 07:23
[2018-09-27] MEDS ORDERED: IBUP-1773 PO (07:24)
[2018-09-27] MEDS ORDERED: ACHD5005 PO (07:24)
[2018-09-27] MEDS ORDERED: KETOROLAC 30 MG/ML VIAL IVP ONE (07:30)
[2018-09-27] MEDS ORDERED: HYDROcodone/APAP 5 MG/325 MG (LORTAB) TAB PO PRN (07:30)
[2018-09-27] MEDS ORDERED: ONDANSETRON 4 MG/2 ML (SDV) Z0FRAN IVP PRN ×2 (07:30→08:30)
[2018-09-27] MEDS ORDERED: morphine INJ 10 MG/ML 1ML (SYR OR VIAL) ONE (08:25)
[2018-09-27] MEDS ORDERED: GLYCOPYRROLATE 0.2 MG/ML (ROBINUL) 2 ML VIAL ONE (08:26)
[2018-09-27] MEDS ORDERED: NEOSTIGMINE 1 MG/ML 5 ML SYRINGE ONE (08:26)
[2018-09-27] MEDS ORDERED: SEVOFLURANE (ULTANE) 15 ML INHAL SOLN ONE (08:27)
[2018-09-27] MEDS ORDERED: MEPERIDINE (DEMEROL) INJ 50 MG/ML IVP ONE (08:30)
[2018-09-27] MEDS ORDERED: fentaNYL INJECTION 100 MCG/2 ML AMP IVP ONE (08:30)
[2018-09-27] MEDS ORDERED: morphine INJ 10 MG/ML 1ML (SYR OR VIAL) IVP ONE (08:30)
--- NOTE | 2018-09-27 08:46 | OPERATIVE REPORT ---
DATE OF SERVICE: 09/27/2018 PREOPERATIVE DIAGNOSIS: Incarcerated incisional hernia. POSTOPERATIVE DIAGNOSIS: Incarcerated incisional hernia. PROCEDURE: Laparoscopic incarcerated incisional hernia repair with 4.5-inch Echo Ventralight mesh. SURGEON: Ken Okeefe DO COSURGEON: Mamadou Seals DO ANESTHESIA: General. ESTIMATED BLOOD LOSS: Minimal. COMPLICATIONS: None. INDICATIONS: The patient is a 77-year-old female with an incarcerated incisional hernia. Dr. Seals already made incisions and abdomen was entered. The trocars were replaced. DESCRIPTION OF PROCEDURE: The patient had an incarcerated incisional hernia of omentum through the defect, which was incarcerated. The hernia was in the right lower quadrant. The hernia contents were reduced with both blunt and scissor dissection by Dr. Seals. Once the hernia defect was visualized, a stab incision was made in the right lower quadrant. A David-Marzena with 0 Vicryl was used to close the defect. A 4.5-inch Ventralight Echo mesh was then inserted into the abdomen and grasped with a David-Marzena through a stab incision. A SecureStrap Tacker was then used to secure the mesh circumferentially and the balloon was then removed. The mesh had adequate coverage and overlay. The balloon was removed and then the SecureStrap Tacker was used to make an inner crown. This was all done in lower abdominal pressure at 10 mmHg. Once secured, the 12 mm trocar site in the left upper quadrant was then closed with a David-Marzena with 0 Vicryl. The skin was then closed using 4-0 Monocryl. The case was then turned back over to Dr. Seals. Job ID: [id number] DocumentID: [id number] Dictated Date: 09/27/2018 08:21:10 Machine Stripper Date: 09/27/2018 08:45:44 Dictated By: KEN OKEEFE DO
--- NOTE | 2018-09-27 09:18 | OPERATIVE REPORT ---
DATE OF SERVICE: 09/27/2018 PREOPERATIVE DIAGNOSIS: A 77-year-old female with incarcerated recurrent incisional hernia. POSTOPERATIVE DIAGNOSIS: A 77-year-old female with incarcerated recurrent incisional hernia. PROCEDURE: Laparoscopic incarcerated incisional hernia repair. SURGEON: Mamadou White DO CO-SURGEON: Gilmer Okeefe DO, who was intraoperatively consulted. ANESTHESIA: General endotracheal. ESTIMATED BLOOD LOSS: Minimal. URINE OUTPUT: Was not recorded. FLUIDS: Was 600 mL of lactated Ringer's solution. FINDINGS: Is a 2 to 3 cm incarcerated incisional hernia of the right abdominal sidewall that included omentum only. SPECIMEN SENT: None. INDICATION FOR PROCEDURE: This 77-year-old female is a patient of mine that underwent robotic hysterectomy about a year ago within the first 6 months of the robotic hysterectomy. She did notice a bulge from her right incision. We attempted on a separate occasion to close this with external approach at which point we were unsuccessful in doing so as postoperatively she did have an episode of coughing that resulted in a tearing and pulling feeling and she was able to notice the hernia immediately after that. She came back to my office shortly after that and decided that she wanted to have it revised. I discussed with her at this time approaching it laparoscopically and the possibility of consulting a general surgeon and using mesh to ensure non-reoccurrence. Risk of the procedure was discussed with the patient in detail including risk of bleeding, infection, damage to surrounding structures including, but not limited to bowel, bladder, possible need for reoperation, risk from anesthesia, possible need for blood transfusion and even . After everything was discussed with the patient, consent was obtained in the preoperative area and the patient was taken to the operating room. OPERATIVE REPORT IN DETAIL: Once in the operating room, general anesthesia was found to be adequate. She was placed in the supine position, prepped and draped in normal sterile fashion. A timeout was performed. I then infiltrated the skin infraumbilically using 0.25% Marcaine and made a 5 mm incision. I directed the Veress needle through the incision until intraperitoneal placement was confirmed using saline drop test. I proceeded with insufflation using CO2 gas and opening pressure of 2 mmHg was noted. I proceeded to maximum pressure of 15 mmHg, at which time, I removed the Veress needle and introduced a 5 mm laparoscopic trocar. Once this was in place, I am able to confirm intraperitoneal placement using the laparoscope and I also confirmed that there was no damage upon my entry. A brief scan of the upper abdominal anatomy appears grossly normal. There are some filmy adhesions that are taken down. There was also of note omental adhesion and inclusion into this right hernia that is obvious on the right abdominal sidewall. I had to place two separate trocars both recommended by the general surgeon, one in the left lower quadrant and one in the left upper quadrant. The left upper quadrant incision is a 12 mm incision, which allowed me to place a 12 mm trocar through this site. The left lower quadrant was a 5 mm trocar. They were placed in similar fashion to my infraumbilical trocar and once these were in place under direct visualization of the laparoscope, I am able to proceed with reducing the hernia. I do so by taking down the omentum that is included in this hernia and pulling it down and out of the hernia opening. After which, I turned the case over to Dr. Okeefe, who reapproximated the hernia opening using 0 Vicryl suture and a David-Marzena externally and then also placed a mesh over the top of the closure as well. Please see his operative report for complete details pertaining to this closure. After which, he turned the case back over to my hands at which point we copiously irrigated the pelvis and abdomen using normal saline. There was no active bleeding noted from any of the dissection planes. The 12 mm trocar site is closed by Dr. Okeefe using David-Marzena and 0 Vicryl suture. Once this was done, the insufflation was released from the other two trocar sites and those trocars were removed as well. The skin of the 5 mm trocars were reapproximated using Dermabond. The 12 mm trocars were reapproximated using 4-0 Monocryl in interrupted subcuticular stitch. Dermabond was applied to this incision as well. Band-Aids were placed over all of the incisions. Lap and sponge count was correct at the end of the procedure. Instrument count was correct as well. The patient tolerated the procedure well and was taken to recovery area in stable condition. Job ID: [id number] DocumentID: [id number] Dictated Date: 09/27/2018 08:45:01 Oil Expeller Operator Date: 09/27/2018 09:18:10 Dictated By: MAMADOU WHITE DO
--- NOTE | 2018-09-27 10:17 | Anesthesia-General Post-Op ---
General Patient Condition Mental Status/LOC: Same as Preop Cardiovascular: Satisfactory Nausea/Vomiting: Absent Respiratory: Satisfactory Pain: Controlled Complications: Absent Post Op Complications Complications None Follow Up Care/Instructions Patient Instructions None needed. Anesthesia/Patient Condition Patient Condition Patient is doing well, no complaints, stable vital signs, no apparent adverse anesthesia problems. No complications reported per nursing. KRISTA ORTA CRNA Sep 27, 2018 10:17
== END 2018-09-27 12:30 | disposition home or self-care (01) ==
LOC: SDC 06:08
PROVIDERS: ATTEND Obstetrics & Gynecology
DX: K43.0 Incisional hernia with obstruction, without gangrene (principal); F17.210 Nicotine dependence, cigarettes, uncomplicated; Z79.899 Other long term (current) drug therapy
CPT/HCPCS: 86850; 86900; 86901

== ENCOUNTER → 2018-10-10 | Outpatient (CLI) | payer MEDICARE, OTHER ==
--- NOTE | 2018-10-10 15:38 | Diagnostic Imaging Report ---
PROCEDURE: CT sinuses without contrast TECHNIQUE: Multiple contiguous axial images were obtained through the sinuses without the use of intravenous contrast. Coronal and sagittal reformations were then performed. Auto Exposure Controls were utilized during the CT exam to meet ALARA standards for radiation dose reduction. INDICATION: Chronic sinus infection. FINDINGS: Frontal sinus appears clear. There is some mucosal thickening and opacification of left-sided ethmoid air cells. Sphenoid sinus is clear. The right maxillary sinus is clear. There is complete opacification of the left maxillary sinus. A portion of the medial wall of the left maxillary sinus is not well seen by CT. There does appear to be soft tissue extending into the left nasal cavity. The possibility of a maxillary sinus mass cannot be entirely excluded. Mastoids are well aerated. The right ostiomeatal complex is patent. Left ostiomeatal complex is opacified. IMPRESSION: There is opacification of the left maxillary sinus. Medial wall left maxillary sinus is not seen and there appears to be some fluid or soft tissue extending into the left nasal cavity. Left maxillary sinus mass cannot be entirely excluded. No other significant abnormality is seen apart from some mild mucosal disease involving the left ethmoid air cells. Dictated by: Dictated on workstation # [id number]
== END ==
LOC: RAD 14:56
PROVIDERS: ATTEND Internal Medicine
DX: J32.9 Chronic sinusitis, unspecified (principal); J34.89 Other specified disorders of nose and nasal sinuses
CPT/HCPCS: 70486

== ENCOUNTER 2018-11-12 10:02 | Outpatient (CLI) | payer MEDICARE, OTHER ==
[~2018-11-12] VITALS: Ht 165.1 cm; Wt 54.0 kg
[2018-11-12] MEDS ORDERED: LACT1CAP72 PO (10:19)
[2018-11-12 10:21] VITALS: BP 138/63
[2018-11-12 10:57] LABS: BASOPHILS % (AUTO) 0 % (0-10); EOSINOPHILS # (AUTO) 0.1 10^3/uL (0.0-0.3); EOSINOPHILS % (AUTO) 1 % (0-10); HEMATOCRIT 40 % (35-52); HEMOGLOBIN 13.4 G/DL (11.5-16.0); LYMPHOCYTES # (AUTO) 2.1 X 10^3 (1.0-4.0); LYMPHOCYTES % (AUTO) 20 % (12-44); MEAN CORPUSCULAR HEMOGLOBIN 31 PG (25-34); MEAN CORPUSCULAR HGB CONC 34 G/DL (32-36); MEAN CORPUSCULAR VOLUME 93 FL (80-99); MEAN PLATELET VOLUME 9.5 FL (7.4-10.4); MONOCYTES # (AUTO) 1.3 X 10^3 (0.0-1.0); MONOCYTES % (AUTO) 12 % (0-12); NEUTROPHILS # (AUTO) 6.9 X 10^3 (1.8-7.8); NEUTROPHILS % (AUTO) 66 % (42-75); PLATELET COUNT 371 10^3/uL (130-400); RED CELL DISTRIBUTION WIDTH 13.6 % (10.0-14.5); WHITE BLOOD COUNT 10.4 10^3/uL (4.3-11.0)
[2018-11-12 11:27] LABS: BUN/CREATININE RATIO 14; CALCIUM 10.1 MG/DL (8.5-10.1); CARBON DIOXIDE 25 MMOL/L (21-32); CHLORIDE 106 MMOL/L (98-107); CREATININE SERUM 0.71 MG/DL (0.60-1.30); GFR ESTIMATED > 60; GLUCOSE 89 MG/DL (70-105); POTASSIUM 4.2 MMOL/L (3.6-5.0); SODIUM 141 MMOL/L (135-145)
== END 2018-11-12 10:45 | disposition home or self-care (01) ==
LOC: PREOP 10:02
PROVIDERS: ATTEND Otolaryngology Otolaryngology/Facial Plastic Surgery
DX: Z01.812 Encounter for preprocedural laboratory examination (principal); Z01.810 Encounter for preprocedural cardiovascular examination; J32.9 Chronic sinusitis, unspecified
CPT/HCPCS: 36415; 80048; 85025; 87081; 93005

== ENCOUNTER 2018-11-15 07:22 | Day surgery (SDC) | payer MEDICARE, OTHER ==
[2018-11-15] VITALS (10 sets, daily range): BP systolic 134–182; BP diastolic 62–81
[~2018-11-15] VITALS: Ht 165.1 cm; Wt 54.0 kg
[~2018-11-15 07:22] MED LIST changes: +LACT1CAP72 PO
[2018-11-15] MEDS ORDERED: LACTATED RINGERS 1,000 ML IV PRN (07:27)
[2018-11-15] MEDS ORDERED: CLINDAMYCIN 900 MG/50 ML IVPB 50 ML IV ONE (07:30)
[2018-11-15] MEDS ORDERED: CATHETER FLUSH 10 ML SYR IV PRN (07:45)
[2018-11-15] MEDS ORDERED: BSS 15 ML ONE (07:54)
[2018-11-15] MEDS ORDERED: COCAINE HCL 4% 2 ML SYR ONE (07:54)
[2018-11-15] MEDS ORDERED: LIDOCAINE/EPI 1%-1:100,000 (XYLOCAINE) 20ML ONE (07:55)
[2018-11-15] MEDS ORDERED: PHENYLEPHRINE 0.5% NASAL SPR (NEO-SYNEPHRINE) REG ONE (07:55)
[2018-11-15] MEDS ORDERED: LIDOCAINE PF 2% 5 ML (XYLOCAINE) VIAL ONE (08:00)
[2018-11-15] MEDS ORDERED: proPOfol 200 MG/20 ML (DIPRIVAN) VIAL IV ONE (08:00)
[2018-11-15] MEDS ORDERED: SEVOFLURANE (ULTANE) 15 ML INHAL SOLN ONE ×2 (08:00→09:18)
[2018-11-15] MEDS ORDERED: ROCURONIUM 10 MG/ML 5 ML SYRINGE IV ONE (08:00)
[2018-11-15] MEDS ORDERED: ONDANSETRON 4 MG/2 ML (SDV) Z0FRAN ONE ×2 (08:00→08:25)
[2018-11-15] MEDS ORDERED: fentaNYL INJECTION 100 MCG/2 ML AMP ONE (08:01)
[2018-11-15] MEDS ORDERED: NEOSTIGMINE 3 MG/3 ML VIAL ONE (08:04)
[2018-11-15] MEDS ORDERED: GLYCOPYRROLATE 0.2 MG/ML (ROBINUL) 2 ML VIAL ONE (08:04)
[2018-11-15] MEDS ORDERED: MIDAZOLAM 2 MG/2 ML (VERSED) VIAL ONE (08:18)
[2018-11-15] MEDS ORDERED: DEXAMETHASONE 10 MG/ML (DECADRON) 1 ML VIAL ONE (08:18)
[2018-11-15] MEDS ORDERED: FAMOTIDINE 20MG/2ML IV (PEPCID) ONE (08:26)
[2018-11-15] MEDS ORDERED: FAMOTIDINE 20MG/2ML IV (PEPCID) IV ONE (08:30)
[2018-11-15] MEDS ORDERED: ONDANSETRON 4 MG/2 ML (SDV) Z0FRAN IV ONE (08:30)
--- NOTE | 2018-11-15 08:32 | Progress Note-Pre Operative ---
Pre-Operative Progress Note H&P Reviewed The H&P was reviewed, patient examined and no changes noted. Date Seen by Provider: Nov 15, 2018 Time Seen by Provider: 08:00 Date H&P Reviewed: Nov 15, 2018 Time H&P Reviewed: 08:00 Pre-Operative Diagnosis: Chronic Left Sinusitis, Deviated Nasal Septum COLLIN MURPHY MD Nov 15, 2018 08:32
[2018-11-15] MEDS ORDERED: MUPIROCIN 2% OINT 22 GM (BACTROBAN) TUBE ONE (09:10)
[2018-11-15] MEDS ORDERED: D5 1/2 NS W/KCL 20 MEQ/L 1,000 ML IV SCH (09:26)
--- NOTE | 2018-11-15 09:26 | Progress Note-Post Operative ---
Post-Operative Progess Note Surgeon (s)/Fork Operator (s) Surgeon COLLIN MURPHY MD Fork Operator n/a Pre-Operative Diagnosis Chronic Left Sinusitis, Deviated Nasal Septum Post-Operative Diagnosis same Post-Op Procedure Note Date of Procedure: Nov 15, 2018 Name of Procedure Performed: Left ESS Description & Findings Description and Findings: n/a Anesthesia Type get Estimated Blood Loss minimal Packing none. Specimen(s) collected/removed left chronic sinus disease, cutlutres aerobic, anaerobic, and fungal to lab COLLIN MURPHY MD Nov 15, 2018 09:26
[2018-11-15] MEDS ORDERED: PROMETHAZINE INJ 25 MG/ML (PHENERGAN) AMP IVP PRN (09:30)
[2018-11-15] MEDS ORDERED: HYDROcodone/APAP 5 MG/325 MG (LORTAB) TAB PO PRN (09:30)
[2018-11-15] MEDS ORDERED: ACETAMINOPHEN 325 MG TABLET PO PRN (09:30)
[2018-11-15] MEDS ORDERED: HYDR-3812 PO (10:53)
--- NOTE | 2018-11-15 13:31 | Anesthesia-General Post-Op ---
General Patient Condition Mental Status/LOC: Same as Preop Cardiovascular: Satisfactory Nausea/Vomiting: Absent Respiratory: Satisfactory Pain: Controlled Complications: Absent Post Op Complications Complications None Follow Up Care/Instructions Patient Instructions None needed. Anesthesia/Patient Condition Patient Condition Patient is doing well, no complaints, stable vital signs, no apparent adverse anesthesia problems. No complications reported per nursing. JUAN FREY CRNA Nov 15, 2018 13:31
== END 2018-11-15 11:45 | disposition home or self-care (01) ==
LOC: SDC 07:22
PROVIDERS: ATTEND Otolaryngology Otolaryngology/Facial Plastic Surgery
DX: J32.9 Chronic sinusitis, unspecified (principal); F17.210 Nicotine dependence, cigarettes, uncomplicated; Z90.710 Acquired absence of both cervix and uterus; Z88.1 Allergy status to other antibiotic agents; Z79.899 Other long term (current) drug therapy
CPT/HCPCS: 87070; 87075; 87101; 87205

== ENCOUNTER → 2019-01-17 | Outpatient (CLI) | payer MEDICARE, OTHER ==
--- NOTE | 2019-01-17 10:27 | Diagnostic Imaging Report ---
INDICATION: Routine screening. Comparison is made with prior mammogram from 09/13/2017 and 08/18/2016. 2-D and 3-D bilateral screening mammography was performed with CAD. Scattered fibroglandular densities are identified bilaterally. There are benign calcifications in both breasts. No dominant mass or malignant appearing microcalcifications are seen. The axillae are unremarkable. IMPRESSION: BI-RADS Category 2 No mammographic features suspicious for malignancy are identified. ACR BI-RADS Category 2: Benign findings. Result letter will be mailed to the patient. Note: At least 10% of breast cancer is not imaged by mammography. Dictated by: Dictated on workstation # [id number]
== END ==
LOC: RAD 07:40
PROVIDERS: ATTEND Internal Medicine
DX: Z12.31 Encounter for screening mammogram for malignant neoplasm of breast (principal)
CPT/HCPCS: 77067

== ENCOUNTER → 2020-01-31 | Outpatient (CLI) | payer MEDICARE, OTHER ==
[~2020-01-31] MED LIST changes: -HYDR-3812 PO; -TRAZ-222 PO; +TRZ50T PO
--- NOTE | 2020-01-31 09:38 | Diagnostic Imaging Report ---
Digital mammogram. Bilateral screening This study was compared to the prior exams of 01/17/2019, 09/13/2017, 03/06/2017 and 08/18/2016. At this time there are no current complaints. The current study was also evaluated with a Computer Aided Detection (CAD) system. FINDINGS: The fibroglandular tissue in both breasts is heterogeneously dense. This does limit the sensitivity of this exam. Overall, there does not appear to have been any significant change when compared to the prior study. No primary or secondary sign of malignancy is noted. IMPRESSION: There is no radiographic evidence for malignancy. ACR BI-RADS Category 1: Negative. Result letter will be mailed to the patient. Note: At least 10% of breast cancer is not imaged by mammography. Dictated by: Dictated on workstation # [id number]
== END ==
LOC: RAD 07:27
PROVIDERS: ATTEND Internal Medicine
DX: Z12.31 Encounter for screening mammogram for malignant neoplasm of breast (principal)
CPT/HCPCS: 77063; 77067

== ENCOUNTER 2020-02-17 09:19 | Outpatient (RCR) | payer MEDICARE, OTHER | END 2020-02-18 | disposition home or self-care (01) | PROVIDERS: ATTEND Podiatrist | DX: Z09 Encounter for follow-up examination after completed treatment for conditions other than malignant neoplasm (principal); M25.571 Pain in right ankle and joints of right foot; Z96.661 Presence of right artificial ankle joint ==

== ENCOUNTER → 2020-04-09 | Outpatient (CLI) | payer MEDICARE, OTHER ==
--- NOTE | 2020-04-09 15:37 | Diagnostic Imaging Report ---
INDICATION: COUGH COMPARISON: 08/20/2013 FINDINGS: Frontal and lateral views of the chest demonstrate normal heart size and pulmonary vascularity. The lungs are clear. There are no signs of infiltrate, pleural effusions or pneumothoraces. The visualized osseous structures show no acute abnormalities. There is calcified aortic atherosclerosis. IMPRESSION: 1. No acute process. No signs of infiltrates, effusions or pneumothoraces. Dictated by: Dictated on workstation # [id number]
[2020-04-09 15:39] LABS: HEMOGLOBIN 12.7 g/dL (11.5-16.0); MEAN PLATELET VOLUME 9.6 fL (9.0-12.2); WHITE BLOOD COUNT 8.1 10^3/uL (4.3-11.0)
[2020-04-09 15:46] LABS: CHLORIDE 104 MMOL/L (98-107); SODIUM 140 MMOL/L (135-145)
[2020-04-09 15:48] LABS: CALCIUM 9.3 MG/DL (8.5-10.1)
[2020-04-09 15:49] LABS: GLUCOSE 93 MG/DL (70-105); TOTAL PROTEIN 6.9 GM/DL (6.4-8.2)
[2020-04-09 15:50] LABS: CARBON DIOXIDE 26 MMOL/L (21-32)
[2020-04-09 15:51] LABS: BILIRUBIN,TOTAL 0.4 MG/DL (0.1-1.0)
[2020-04-09 15:52] LABS: ALKALINE PHOSPHATASE 84 U/L (40-136)
[2020-04-09 15:53] LABS: CREATININE SERUM 0.77 MG/DL (0.60-1.30); GFR ESTIMATED > 60
[2020-04-09 15:54] LABS: BUN/CREATININE RATIO 14
[2020-04-09 15:55] LABS: ALANINE AMINOTRANSFERASE 24 U/L (0-55)
== END ==
LOC: LAB 14:53
PROVIDERS: ATTEND Internal Medicine
DX: R05 Cough (principal); Z20.822 Contact with and (suspected) exposure to COVID-19
CPT/HCPCS: 36415; 71045; 80053; 85027; 85652; 86141; 86769

== ENCOUNTER → 2021-02-01 | Outpatient (CLI) | payer MEDICARE, OTHER ==
--- NOTE | 2021-02-01 11:43 | Diagnostic Imaging Report ---
INDICATION: Routine screening. COMPARISON: 01/31/2020 and 01/17/2019. TECHNIQUE: 2D and 3D bilateral screening mammography was performed with CAD. FINDINGS: Both breasts are heterogeneously dense, limiting the sensitivity of mammography. The parenchymal pattern is stable. No mass or malignant-appearing microcalcifications are seen. The axillae are unremarkable. IMPRESSION: No mammographic features suspicious for malignancy are identified. ACR BI-RADS Category 1: Negative. Result letter will be mailed to the patient. Note: At least 10% of breast cancer is not imaged by mammography. Dictated by: Dictated on workstation # [id number]
== END ==
LOC: RAD 07:30
PROVIDERS: ATTEND Internal Medicine
DX: Z12.31 Encounter for screening mammogram for malignant neoplasm of breast (principal)
CPT/HCPCS: 77063; 77067

== ENCOUNTER → 2021-07-15 | Outpatient (CLI) | payer MEDICARE, OTHER ==
--- NOTE | 2021-07-15 09:48 | Diagnostic Imaging Report ---
PROCEDURE: CT chest without contrast. TECHNIQUE: Multiple contiguous axial images were obtained through the chest without the use of intravenous contrast. Auto Exposure Controls were utilized during the CT exam to meet ALARA standards for radiation dose reduction. INDICATION: Pulmonary nodule. FINDINGS: There are two minute 3 to 4 mm subpleural linear configured benign nodules in the left lower lobe showing long-term stability. These are unchanged from multiple previous exams and require no further workup. A minute benign intrapleural nodule in the right middle lobe is also chronic and stable at 4 mm. No new dominant or suspicious lung mass. No findings of lung cancer. No evidence for pneumonia or edema. Benign calcified granulomatous disease superimposed is chronic. No suspicious lymph nodes in the chest. No effusion or pneumothorax. Degenerative changes to the bony structures are stable. The visualized upper abdomen shows prior cholecystectomy with no acute appearing abnormality. IMPRESSION: 1. Stable chronic benign subpleural, subcentimeter micronodules are Li-RADS 2 lesions and require no further workup. 2. Benign granulomatous disease, chronic. 3. No acute or suspicious finding. Dictated by: Dictated on workstation # [id number]
== END ==
LOC: RAD 08:45
PROVIDERS: ATTEND Internal Medicine
DX: R91.8 Other nonspecific abnormal finding of lung field (principal); J84.10 Pulmonary fibrosis, unspecified
CPT/HCPCS: 71250

== ENCOUNTER → 2022-02-15 | Outpatient (CLI) | payer MEDICARE, OTHER ==
--- NOTE | 2022-02-15 11:24 | Diagnostic Imaging Report ---
INDICATION: Postmenopausal state. COMPARISON: 01/22/2010 FINDINGS: AP Spine L1-L4: [BMD (g/cm2): 1.332] [T-Score: 1.1] [Z-Score: 3.2] [BMD Previous: 1.486] [BMD % Change: -10.4] LT Hip Neck: [BMD (g/cm2): 0.836] [T-Score: -1.5] [Z-Score: 0.8] LT Hip Total: [BMD (g/cm2):0.977] [T-Score:-0.2] [Z-Score: 1.9] [BMD Previous: 1.099] [BMD % Change: -11.1] RT Hip Neck: [BMD (g/cm2):0.811] [T-Score:-1.6] [Z-Score:0.7] RT Hip Total: [BMD (g/cm2):0.891] [T-score:-0.9] [Z-Score:1.2] [BMD Previous:1.069] [BMD % Change:-16.7] *Indicates significant change from prior examination based on 95% confidence level. World Health Organization criteria for BMD interpretation classify patients as Normal (T-score at or above -1.0), Osteopenic (T-score between -1.0 and -2.5) or Osteoporotic (T-score at or below -2.5). LIMITATIONS AND MODIFICATION: None. FRACTURE RISK (FRAX SCORE): The ten year probability of (%): Major Osteoporotic Fracture: [13.0] Hip Fracture: [5.1] IMPRESSION: 1. Osteopenia (Low bone mass). 2. Bone mineral density has decreased by a statistically significant amount, as detailed above. 3. See below National Osteoporosis Foundation guidelines on when to potentially initiate pharmacologic therapy. Based on the National Osteoporosis Foundation Guidelines, pharmacologic treatment should be initiated in any of the following, unless clinical conditions suggest otherwise: * Any patient with prior fragility fracture of the hip or vertebrae. A spine fracture indicates 5X risk for subsequent spine fracture and 2X risk for subsequent hip fracture. * Osteoporosis (T-score <-2.5). * Postmenopausal women and men age 50 and older with low bone mass/osteopenia (T-score between -1.0 and -2.5) by DXA and 10-year major osteoporotic fracture greater than 20% or a 10-year probability of hip fracture greater than 3%. These fracture risks are supplied above in the FRAX score, if applicable. * Clinician judgement and/or patient preferences may indicate treatment for people with 10-year fracture probabilities above or below these levels. Dictated by: Dictated on workstation # [id number]
--- NOTE | 2022-02-15 14:51 | Diagnostic Imaging Report ---
INDICATION: Routine screening. COMPARISON: 02/01/2021 and 01/31/2020. TECHNIQUE: 2D and 3D bilateral screening mammography was performed with CAD. FINDINGS: Both breasts are heterogeneously dense, limiting the sensitivity of mammography. Occasional benign calcifications are noted. No spiculated mass or malignant-appearing microcalcifications are seen. The axillae are unremarkable. IMPRESSION: No mammographic features suspicious for malignancy are identified. ACR BI-RADS Category 2: Benign findings. Result letter will be mailed to the patient. Note: At least 10% of breast cancer is not imaged by mammography. Dictated by: Dictated on workstation # [id number]
== END ==
LOC: RAD 09:44
PROVIDERS: ATTEND Internal Medicine
DX: Z12.31 Encounter for screening mammogram for malignant neoplasm of breast (principal); M85.89 Other specified disorders of bone density and structure, multiple sites; Z78.0 Asymptomatic menopausal state
CPT/HCPCS: 77063; 77067; 77080

== ENCOUNTER 2023-01-24 14:21 | Outpatient (CLI) | payer MEDICARE, OTHER ==
[~2023-01-24] VITALS: Ht 162.6 cm; Wt 56.0 kg
[2023-01-24 14:42] VITALS: BP 120/53
[2023-01-24 14:51] LABS: CLARITY,URINE CLEAR; COLOR,URINE YELLOW
[2023-01-24 14:52] LABS: BACTERIA,URINE NEGATIVE /HPF; BILIRUBIN,URINE NEGATIVE (NEGATIVE); GLUCOSE, URINE (UA) NEGATIVE (NEGATIVE); KETONES,URINE NEGATIVE (NEGATIVE); LEUKOCYTE ESTERASE ,URINE NEGATIVE (NEGATIVE); NITRITE,URINE NEGATIVE (NEGATIVE); PROTEIN,URINE NEGATIVE (NEGATIVE)
[2023-01-24] MEDS ORDERED: MELO15TA39 PO (14:53)
[2023-01-24 15:39] LABS: BASOPHILS # (AUTO) 0.1 10^3/uL (0.0-0.1); BASOPHILS % (AUTO) 1 % (0-10); EOSINOPHILS # (AUTO) 0.4 10^3/uL (0.0-0.3); EOSINOPHILS % (AUTO) 4 % (0-10); HEMATOCRIT 38 % (35-52); HEMOGLOBIN 12.7 g/dL (11.5-16.0); LYMPHOCYTES # (AUTO) 3.1 X 10^3 (1.0-4.0); LYMPHOCYTES % (AUTO) 32 % (12-44); MEAN CORPUSCULAR HEMOGLOBIN 32 pg (25-34); MEAN CORPUSCULAR HGB CONC 33 g/dL (32-36); MEAN CORPUSCULAR VOLUME 96 fL (80-99); MEAN PLATELET VOLUME 9.5 fL (9.0-12.2); MONOCYTES # (AUTO) 0.9 X 10^3 (0.0-1.0); MONOCYTES % (AUTO) 9 % (0-12); NEUTROPHILS # (AUTO) 5.4 X 10^3 (1.8-7.8); NEUTROPHILS % (AUTO) 55 % (42-75); PLATELET COUNT 319 10^3/uL (130-400); WHITE BLOOD COUNT 9.9 10^3/uL (4.3-11.0)
[2023-01-24 15:50] LABS: CALCIUM 9.7 MG/DL (8.5-10.1); CREATININE SERUM 0.78 MG/DL (0.60-1.30); POTASSIUM 4.3 MMOL/L (3.6-5.0)
--- NOTE | 2023-01-24 16:15 | Diagnostic Imaging Report ---
INDICATION: Preoperative evaluation prior to knee arthroplasty. COMPARISON: 04/09/2020 FINDINGS: Frontal and lateral views of the chest demonstrate normal heart size and pulmonary vascularity. The lungs are clear. There are no signs of infiltrate, pleural effusions or pneumothoraces. The visualized osseous structures show no acute abnormalities. IMPRESSION: 1. No acute process. No signs of infiltrates, effusions or pneumothoraces. Dictated by: Dictated on workstation # [id number]
== END 2023-01-24 17:00 ==
LOC: PREOP 14:21
PROVIDERS: ATTEND Orthopaedic Surgery
DX: Z01.818 Encounter for other preprocedural examination (principal); M17.11 Unilateral primary osteoarthritis, right knee
CPT/HCPCS: 36415; 71046; 80048; 81000; 85025; 87081; 93005

== ENCOUNTER → 2023-01-24 | Outpatient (CLI) | payer MEDICARE, OTHER ==
--- NOTE | 2023-01-24 17:53 | Diagnostic Imaging Report ---
INDICATION: PAIN OF RIGHT KNEE JOINT COMPARISON: None. FINDINGS: Multiple radiographic views of the right knee were obtained. There are advanced osteoarthritic changes consistent with tricompartmental joint space narrowing with sclerotic remodeling to the articular surfaces and small osteophyte formations. Note is also made of chondrocalcinosis. Joint spaces are otherwise maintained. Osseous structures are intact. No unexpected radiopaque foreign bodies are seen. IMPRESSION: 1. Advanced osteoarthritic changes of the right knee, but no acute fracture or dislocation. 2. Chondrocalcinosis. Findings can be seen with underlying CPPD. Dictated by: Dictated on workstation # [id number]
== END ==
LOC: ORTHO 12:55
PROVIDERS: ATTEND Orthopaedic Surgery
DX: M17.11 Unilateral primary osteoarthritis, right knee (principal); M11.261 Other chondrocalcinosis, right knee
CPT/HCPCS: 73564; G0463; 99203

== ENCOUNTER → 2023-01-31 | Outpatient (CLI) | payer MEDICARE, OTHER ==
--- NOTE | 2023-01-31 11:02 | Diagnostic Imaging Report ---
PROCEDURE: CT right lower extremity without contrast. TECHNIQUE: Axially acquired CT was obtained through the right lower extremity without intravenous contrast. Coronal and sagittal reformations were also performed. Auto Exposure Controls were utilized during the CT exam to meet ALARA standards for radiation dose reduction. INDICATION: Unilateral primary osteoarthritis. COMPARISON: None. FINDINGS: Bone density is diffusely low. No acute fracture is seen in the right knee. There is severe degenerative change in the medial and patellofemoral compartments with [id number]-[id number] degenerative change in the lateral compartment. There are prominent marginal osteophytes. There is vacuum phenomenon medially. There is chondrocalcinosis. There is a moderate right knee joint effusion. No focal muscular atrophy is seen. No acute osseous abnormality is seen in the right hip or right ankle. There is a right ankle arthroplasty. IMPRESSION: 1. Advanced tricompartmental degenerative changes in the right knee. 2. Moderate right knee joint effusion. Dictated by: Dictated on workstation # [id number]
== END ==
LOC: RAD 09:34
PROVIDERS: ATTEND Orthopaedic Surgery
DX: M17.11 Unilateral primary osteoarthritis, right knee (principal); M25.461 Effusion, right knee
CPT/HCPCS: 73700

== ENCOUNTER 2023-02-13 06:00 | Day surgery (SDC) | payer MEDICARE, OTHER ==
[~2023-02-13] VITALS: Ht 165 cm; Wt 60.5 kg
[2023-02-13] VITALS (14 sets, daily range): BP systolic 115–172; BP diastolic 55–87
[2023-02-13] MEDS ORDERED: ceFAZolin INJECTION 2,000 MG in NS (IVPB) 50 ML 50 ML IV ONE (06:15)
[2023-02-13] MEDS: LACTATED RINGERS 1,000 ML 1,000 ML IV PRN ×2 (06:48→07:22)
[2023-02-13] MEDS ORDERED: ONDANSETRON INJECTION 4 MG/2 ML (SDV) ONE (07:10)
[2023-02-13] MEDS ORDERED: MIDAZOLAM INJ 2 MG/2 ML VIAL ONE (07:10)
--- NOTE | 2023-02-13 07:17 | Progress Note-Pre Operative ---
Pre-Operative Progress Note Date of Available H&P: Jan 24, 2023 Date H&P Reviewed: Feb 13, 2023 Time H&P Reviewed: 07:05 History & Physical: H&P Reviewed, Patient Examed, No changes noted Pre-Operative Diagnosis: Right Knee Primary Osteoarthritis KRISTA SIERRA MD Feb 13, 2023 07:17
[2023-02-13] MEDS ORDERED: BUPIVACAINE 0.5% 30 ML VIAL ONE (09:15)
[2023-02-13] MEDS ORDERED: TRANEXAMIC ACID 100 MG/ML 10 ML INJECTION ONE (09:52)
[2023-02-13] MEDS ORDERED: ONDANSETRON INJECTION 4 MG/2 ML (SDV) IVP PRN (10:30)
[2023-02-13] MEDS ORDERED: MEPERIDINE INJ 50 MG/ML VIAL IVP ONE (10:30)
[2023-02-13] MEDS ORDERED: fentaNYL INJECTION 100 MCG/2 ML VIAL IVP ONE (10:30)
--- NOTE | 2023-02-13 10:32 | Operative Report - Ortho ---
Operative Report Surgeon (s)/Cylinder Inspector And Tester (s) Surgeon KRISTA SIERRA MD Cylinder Inspector And Tester n/a Pre-Operative Diagnosis Right Knee Primary Osteoarthritis Post-Operative Diagnosis same Operative Report Date of Procedure: Feb 13, 2023 Name of Procedure Performed: Robotic Assisted Right Total Knee Arthroplasty Description & Findings After obtaining informed consent and marking the patient in the preoperative holding area, the patient did receive IV antibiotics. Patient was taken to the operating room and anesthesia was induced. Surgical timeout was taken. The left lower extremity was prepped and draped in the usual sterile fashion. Incision was made and carried down to fascia. Arthrotomy was performed on the medial side of the patella. Patella was retracted laterally and knee was flexed. Found to have circumferential osteophtye around the distal femur as well as exposed bone in the medial compartment. ACL and anterior horns of the menisci were removed. 3.2 mm pins were placed in the medial femoral condyle for the femoral array and checkpoint was placed next to the pins. 3.2 mm pins were placed in the proximal tibia and checkpoint was placed there as well. Arrays were placed and tightened into position. The femur and tibia were then registered. Osteophytes were removed. The knee was then tensioned with varus and valgus stress in extension and flexion. Measurements were captured and adjustments were made to the preoperative plan to balance the flexion and extension gaps. Robotic arm was brought into position and all femoral cuts were performed. Bone blocks were removed. Tibial cut was going to be performed but the saw registration was offline. Box cut was performed. Extramedullary tibia guide was put into place and set to take 2 mm off of the medial side which was in line with the surgial plan. Resection was made and was paralell to the joint line. Lamina music publicist was placed and the remainder of the mensici as well as posterior osteophytes were removed. The knee was trialed with a size 3 femur and a size 2 tibia with an 11 mm poly trial. It was found to come out to just less than full extension and flexed beyond 120 degrees. It was stable to varus and valgus stress throughout its range of motion. The trial poly was changed to a 10 mm thickness and extension was improved. This was accepted. Knee was brought out into extension and the patella was measured at 22 mm of thickness. Osteophytes were removed from around the perimeter of the patella. Patella was prepared for an inset patellar component. Patellar component was placed and tracked well through the trochlear groove of the femur. Lug holes were drilled in the distal femur. Trial implants were removed. Tibial tray was pinned and punched. The cut bone surfaces were lavaged with pulsatile normal saline. Cement was mixed. Implants were opened and assembled on the back table. Cement was applied to the cut bone surface as well as the implant. A size 2 tibial component was impacted into place; excess cement was removed using the freer. A size 3 femoral component was impacted into place and excess cement was removed using a freer. Tibial tray was lavaged with saline. A 10 mm thick polyethylene component was locked into placed and the locking mechanism was checked. Knee was brought into extension. Patella was irrigated and dried; cement was applied to the cut bone surface and the patellar component was clamped into place. Excess cement was removed using a freer. Irrisept soak was performed and then, the knee was irrigated with normal saline. The knee was once again trialed; found to come to full extension, flexed beyond 120 degrees, and was stable to varus and valgus stress. Tourniquet was dropped and electrocautery was used for hemostasis. Fascial layer was closed with #2 Stratafix. The subcutaneous layer was closed with 2-0 Vicryl. The skin was closed with 3-0 v-loc. Wound was dressed with steri-strips, xeroform, 4x4s, ABD, webril, and TAY wrap. Patient tolerated the procedure well and was stable to the recovery room. Anesthesia Type Spinal Estimated Blood Loss 150 mL Specimen(s) collected/removed None KRISTA SIERRA MD Feb 13, 2023 10:32
[2023-02-13] MEDS ORDERED: fentaNYL INJECTION 100 MCG/2 ML VIAL ONE (10:39)
[2023-02-13] MEDS ORDERED: MILK OF MAGNESIA 400 MG/5 ML 30 ML UDC PO PRN (10:45)
[2023-02-13] MEDS ORDERED: ACETAMINOPHEN 500 MG TABLET PO PRN (10:45)
[2023-02-13] MEDS ORDERED: BISACODYL 5 MG TABLET PO PRN (10:45)
--- NOTE | 2023-02-13 11:01 | Consultation ---
HPI History of Present Illness: HPI/Chief Complaint CC: Medical management following right knee replacement HPI: This is an 82yoWF clinic patient of mine who presents to recovery following an uncomplicated right knee replacement by Dr Han. Currently she is in recovery and complaining of some mild pain. BP will be monitored. Source: patient, RN/MD, old records Exam Limitations: no limitations Date Seen 02/13/23 Attending Physician Uri Real Dpm PCP Admitting Physician: Attending Physician: Kemar Han MD Referring Physician Date of Admission Home Medications & Allergies Home Medications Reviewed patient Home Medication Reconciliation performed by pharmacy medication reconciliations orthophotography technician and/or nursing. Patients Allergies have been reviewed. Allergies Allergies Coded Allergies methylprednisolone (Verified Allergy, Severe, RASH, 01/24/23) morphine (Verified Allergy, Severe, VOMITTING, 01/24/23) Sulfa (Sulfonamide Antibiotics) (Verified Allergy, Unknown, UNKNOWN, 01/24/23) CHILDHOOD REACTION cefdinir (Verified Allergy, Unknown, c-diff, 11/12/18) ciprofloxacin (Verified Allergy, Unknown, c-diff, 11/12/18) metronidazole (Verified Allergy, Unknown, c-diff, 11/12/18) Past Mpoykat-Gkqfob-Lquvtd Hx Past Med/Social Hx: Reviewed Nursing Past Med/Soc Hx, Reviewed and Corrections made Patient Social History Marrital Status: Employed/Student: retired Alcohol Use: Occasionally Uses Smoking Status: Current Someday Smoker Type Used: Cigarettes 2nd Hand Smoke Exposure: Yes Recent Hopitalizations: No Immunizations Up To Date Pediatric: No Date of Pneumonia Vaccine: Feb 15, 2012 Date of Influenza Vaccine: Jan 10, 2018 Seasonal Allergies Seasonal Allergies: Yes Past Medical History Surgeries: Abdominal, Adenoidectomy, Appendectomy, Breast, Eye Surgery, Gallbladder, Hysterectomy, Oophorectomy, Tonsillectomy Currently Using CPAP: No Currently Using BIPAP: No Reproductive: No Sexually Transmitted Disease: No HIV/AIDS: No Female Reproductive Disorders: Denies Hysterectomy Gastrointestinal: Abdominal Hernia, Gastroesophageal Reflux, Liver Disease/Jaundice, Hepatitis, C-Diff, Gall Bladder Disease Musculoskeletal: Arthritis HEENT: Cataract, Tonsilitis Loss of Vision: Denies Hearing Impairment: Denies History of Blood Disorders: No Adverse Reaction to Blood Valle: No (N/A) Review of Systems Constitutional: see HPI EENTM: no symptoms reported Respiratory: no symptoms reported Cardiovascular: no symptoms reported Gastrointestinal: no symptoms reported Genitourinary: no symptoms reported Musculoskeletal: back pain, joint pain Skin: no symptoms reported Psychiatric/Neurological: No Symptoms Reported All Other Systems Reviewed Negative Unless Noted: Yes Physical Exam Physical Exam Vital Signs Vital Signs - First Documented 02/13/23 06:25 Temp 35.9 Pulse 68 Resp 18 B/P (MAP) 140/60 (86) Pulse Ox 98 O2 Delivery Room Air Capillary Refill : Less Than 3 Seconds Height, Weight, BMI Height: 5'5.00" Weight: 119lbs. 0.0oz. [id number]; 21.33 BMI Method: General Appearance: No Apparent Distress, WD/WN Eyes: Bilateral Eye Normal Inspection, Bilateral Eye PERRL HEENT: PERRL/EOMI, TMs Normal, Normal ENT Inspection, Pharynx Normal Neck: Full Range of Motion, Normal Inspection, Non Tender, Supple, Carotid Bruit Respiratory: Chest Non Tender, Lungs Clear, Normal Breath Sounds, No Accessory Muscle Use, No Respiratory Distress Cardiovascular: Regular Rate, Rhythm, No Edema, No Gallop, No JVD, No Murmur, Normal Peripheral Pulses Gastrointestinal: Normal Bowel Sounds, No Organomegaly, No Pulsatile Mass, Non Tender, Soft Back: Normal Inspection, No CVA Tenderness, No Vertebral Tenderness Extremity: Normal Capillary Refill, Normal Inspection, Normal Range of Motion (limited right leg), Non Tender, No Calf Tenderness, No Pedal Edema Neurologic/Psychiatric: Alert, Oriented x3, No Motor/Sensory Deficits, Normal Mood/Affect Skin: Normal Color, Warm/Dry Lymphatic: No Adenopathy Results Results/Procedures Labs Patient resulted labs reviewed. Assessment/Plan Assessment and Plan Assess & Plan/Chief Complaint Assessment: s/p right TKA POD # 0 Anxiety Osteopenia Smoker OA GERD Plan: Pain control Monitor BP DYLAN NELSON DO Feb 13, 2023 11:01
--- NOTE | 2023-02-13 11:29 | Diagnostic Imaging Report ---
KNEE, RIGHT, 2 VIEWS INDICATION: Immediate postop imaging after total knee arthroplasty COMPARISON: None available. TECHNIQUE: 2 of the right knee. FINDINGS: Total knee arthroplasty with patella resurfacing has components in good alignment. No acute periprosthetic fracture. Expected postoperative joint effusion and soft tissue gas. IMPRESSION: No unexpected finding following total knee arthroplasty. Dictated by: Dictated on workstation # [id number]
[2023-02-13] MEDS: NS IV 1000 ML 1,000 ML IV SCH ×2 (12:00→22:00)
[2023-02-13] MEDS: oxyCODONE IMMEDIATE RELEASE 5 MG TABLET PO PRN ×3 (12:00→22:00)
[2023-02-13] MEDS: HYDROmorphone INJECTION 2 MG/ML VIAL IVP PRN ×3 (12:31→23:02)
--- NOTE | 2023-02-13 13:51 | Physical Therapy Evaluation ---
PT Evaluation-General Medical Diagnosis Admission Date February 13, 2023 Medical Diagnosis: right knee OA Onset Date: Feb 13, 2023 Therapy Diagnosis Therapy Diagnosis: impaired mobility/generalized weakness Height/Weight Height (Feet): 5 Height (Inches): 5.00 Weight (Pounds): 119 Weight (Ounces): 0.0 Precautions Precautions/Isolations: Fall Prevention, Standard Precautions Referral Physician: Guille Reason for Referral: Evaluation/Treatment Medical History Pertinent Medical History: OA, Smoking Current History s/p elective right TKR Reviewed History: Yes Social History Home: Single Level Prior Prior Level of Function SCALE: Activities may be completed with or without assistive devices. 1-Vthhkjxhmo-hkrdeyr completes the activity by him/herself with no assistance from a helper. 5-Set-up or Clean-up Assistance-helper sets up or cleans up; patient completes activity. [place] assists only prior to or following the activity. 4-Supervision or Touching Assistance-helper provides verbal cues and/or touching/steadying and/or contact guard assistance as patient completes activity. Assistance may be provided throughout the activity or intermittently. 3-Partial/Moderate Assistance-helper does LESS THAN HALF the effort. [place] lifts, holds or supports trunk or limbs, but provides less than half the effort. 2-Substantial/Maximal Assistance-helper does MORE THAN HALF the effort. [place] lifts or holds trunk or limbs and provides more than half the effort. 9-Iohtbhioq-mqkpdw does ALL the effort. Patient does none of the effort to complete the activity. Or, the assistance of 2 or more helpers is required for the patient to complete the activity. If activity was not attempted, code reason: 7-Patient Refused. 9-Not Applicable-not attempted and the patient did not perform the activity before the current illness, exacerbation or injury. 10-Not Attempted due to Environmental Limitations-(lack of equipment, weather restraints, etc.). 88-Not Attempted due to Medical Conditions or Safety Concerns. Bed Mobility: 6 Transfers (B,C,W/C): 6 Gait: 6 Stairs: 6 Indoor Mobility (Ambulation): Independent Stairs: Independent Prior Devices Use: None PT Evaluation-Current Subjective Patient agrees to PT. Objective Patient Orientation: Normal For Age Attachments: Oxygen, Pierce Catheter, IV ROM/Strength ROM Lower Extremities right knee NT/left LE WFL Strength Lower Extremities right LE 3+/5 grossly/left LE 4/5 grossly Integumentary/Posture Bladder Incontinence: Pierce Cath Posture WFL Neuromuscular (Tone, Coordination, Reflexes) grossly intact with all Sensory Vision: Functional Hearing: Functional Transfers Roll Left to Right (QC): 4 Sit to Lying (QC): 4 Lying to Sitting/Side of Bed(Q: 4 Sit to Stand (QC): 4 Gait Mode of Locomotion: Walk Anticipated Mode of Locomotion: Walk Walk 10 feet (QC): 4 Walk 50 ft with 2 Turns(QC): 4 Walk 150 ft (QC): 88 Distance: 75' Gait Assistive Device: FWW Comments/Gait Description slow, antalgic gait sequence Balance Sitting Static: Normal Sitting Dynamic: Normal Standing Static: Fair Standing Dynamic: Fair Assessment/Needs Patient will benefit from skilled PT to address functional strength and mobility to improve current LOF to safely return to home at maximum LOF. Rehab Potential: Fair PT Diesel Fleet Mechanic Goals Alf Goals PT Diesel Fleet Mechanic Goals Time Frame: Feb 25, 2023 Roll Left & Right (QC): 6 Sit to Lying (QC): 6 Lying-Sitting on Side/Bed(QC): 6 Sit to Stand (QC): 6 Chair/Vsx-is-Pcadg Xfer(QC): 6 Toilet Transfer (QC): 6 Walk 10 feet (QC): 6 Walk 50ft with 2 Turns (QC): 6 Walk 150 ft (QC): 6 PT Plan Problem List Problem List: Activity Tolerance, Functional Strength, Safety, Balance, Gait, Transfer, Bed Mobility, ROM Treatment/Plan Treatment Plan: Continue Plan of Care Treatment Plan: Bed Mobility, Education, Functional Activity Izzy, Functional Strength, Gait, Safety, Therapeutic Exercise, Transfers Treatment Duration: Feb 25, 2023 Frequency: 11 times per week Estimated Hrs Per Day: .5 hour per day Patient and/or Family Agrees t: Yes Time Time In: 1326 Time Out: 1340 DATE: Feb 13, 2023 Total Billed Treatment Time: 14 Total Billed Treatment 1 visit EVMod 14 min JULIO ROJAS PT Feb 13, 2023 13:51
[2023-02-13] MEDS: CYCLOBENZAPRINE 10 MG TABLET PO PRN (15:27)
[2023-02-13] MEDS: ONDANSETRON INJECTION 4 MG/2 ML (SDV) IV PRN ×2 (15:27→23:02)
[2023-02-13] MEDS: ASPIRIN enteric coated 81MG TABLET PO SCH (17:54)
[2023-02-13] MEDS: MELOXICAM 7.5 MG TABLET PO SCH (20:19)
[2023-02-13] MEDS: DOCUSATE SODIUM 100 MG CAPSULE PO SCH (20:19)
[2023-02-13] MEDS: ceFAZolin INJECTION 2,000 MG in NS (IVPB) 50 ML 50 ML IV SCH (20:20)
[2023-02-13] MEDS ORDERED: MELOXICAM 7.5 MG TABLET PO SCH (21:00)
[2023-02-14 04:15] VITALS: BP 172/72
[2023-02-14] MEDS: oxyCODONE IMMEDIATE RELEASE 5 MG TABLET PO PRN ×2 (04:15→08:27)
[2023-02-14 05:42] LABS: BASOPHILS % (AUTO) 0 % (0-10); EOSINOPHILS % (AUTO) 0 % (0-10); HEMATOCRIT 33 % (35-52); LYMPHOCYTES # (AUTO) 2.1 10^3/uL (1.0-4.0); LYMPHOCYTES % (AUTO) 11 % (12-44); MEAN CORPUSCULAR HEMOGLOBIN 32 pg (25-34); MEAN CORPUSCULAR HGB CONC 33 g/dL (32-36); MEAN CORPUSCULAR VOLUME 95 fL (80-99); MEAN PLATELET VOLUME 10.2 fL (9.0-12.2); MONOCYTES # (AUTO) 2.6 10^3/uL (0.0-1.0); MONOCYTES % (AUTO) 14 % (0-12); NEUTROPHILS # (AUTO) 14.4 10^3/uL (1.8-7.8); NEUTROPHILS % (AUTO) 75 % (42-75); PLATELET COUNT 280 10^3/uL (130-400); WHITE BLOOD COUNT 19.3 10^3/uL (4.3-11.0)
[2023-02-14] MEDS: ceFAZolin INJECTION 2,000 MG in NS (IVPB) 50 ML 50 ML IV SCH (05:59)
[2023-02-14] MEDS: THERAPEUTIC MULTIVITAMIN W/MINERALS TABLET PO SCH (06:00)
[2023-02-14] MEDS: CYCLOBENZAPRINE 10 MG TABLET PO PRN ×2 (06:03→19:27)
[2023-02-14 06:09] LABS: ALBUMIN 3.8 GM/DL (3.2-4.5); BILIRUBIN,TOTAL 0.9 MG/DL (0.1-1.0); CREATININE SERUM 0.77 MG/DL (0.60-1.30); POTASSIUM 4.2 MMOL/L (3.6-5.0); TOTAL PROTEIN 6.4 GM/DL (6.4-8.2)
[2023-02-14 06:34] LABS: LYMPHOCYTES % (MANUAL) 13 %; MONOCYTES % (MANUAL) 7 %; NEUTROPHILS % (MANUAL) 80 %; RBC MORPH NORMAL
[2023-02-14 07:14] VITALS: BP 165/72
[2023-02-14] MEDS: DOCUSATE SODIUM 100 MG CAPSULE PO SCH ×2 (08:08→19:27)
[2023-02-14] MEDS: ASPIRIN enteric coated 81MG TABLET PO SCH ×2 (08:08→17:24)
[2023-02-14] MEDS: NS IV 1000 ML 1,000 ML IV SCH (08:26)
--- NOTE | 2023-02-14 08:28 | Progress Note - Ortho ---
Progress Note Subjective Date of Exam 02/14/23 Chief Complaint POD #1 R TKA HPI/Events since last exam having some difficulty with pain, has done reasonably well with therapy, states not ready to go home Review of Systems - Allergies: Coded Allergies: methylprednisolone (Verified Allergy, Severe, RASH, 01/24/23) morphine (Verified Allergy, Severe, VOMITTING, 01/24/23) Sulfa (Sulfonamide Antibiotics) (Verified Allergy, Unknown, UNKNOWN, 01/24/23) CHILDHOOD REACTION cefdinir (Verified Allergy, Unknown, c-diff, 11/12/18) ciprofloxacin (Verified Allergy, Unknown, c-diff, 11/12/18) metronidazole (Verified Allergy, Unknown, c-diff, 11/12/18) Home Meds Reported Medications Meloxicam (Meloxicam) 15 Mg Tablet, 15 MG PO DAILY, TAB 01/24/23 Calcium Citrate/Vitamin D3 (Citracal + D Maximum Caplet) 1 Each Tablet, 1 EACH PO DAILY, TAB 04/11/17 Objective Exam R Knee: Dressing C/D/I, +DF of ankle, no s/s of DVT Vital Signs Vital Signs Date Time Temp Pulse Resp B/P (MAP) Pulse Ox O2 Delivery O2 Flow Rate FiO2 02/14/23 07:14 36.4 84 16 165/72 (103) 95 Room Air 02/14/23 04:15 37.0 90 18 172/72 (105) 95 Room Air 02/13/23 23:06 37.0 89 18 170/71 (104) 96 Room Air 02/13/23 20:46 36.9 90 17 172/82 (112) 95 Room Air 02/13/23 20:00 Room Air 02/13/23 18:43 91 Room Air 02/13/23 16:04 36.8 91 17 150/71 (97) 99 Room Air 02/13/23 14:21 Nasal Cannula 2.00 02/13/23 12:45 36.6 67 16 168/77 (107) 100 Nasal Cannula 2.00 02/13/23 11:37 36.6 67 16 168/77 (107) 100 Nasal Cannula 2.00 02/13/23 11:20 Nasal Cannula 2.00 02/13/23 11:20 36.1 20 147/87 (107) 99 Nasal Cannula 2.00 02/13/23 11:15 Nasal Cannula 2.00 02/13/23 11:10 20 148/87 (107) 99 Nasal Cannula 2.00 02/13/23 11:00 20 149/62 (91) 98 Nasal Cannula 2.00 02/13/23 11:00 Nasal Cannula 2.00 02/13/23 10:50 20 146/63 (90) 97 Room Air 02/13/23 10:45 Nasal Cannula 2.00 02/13/23 10:40 20 115/55 (75) 94 Room Air 02/13/23 10:30 OxyMask 3.00 02/13/23 10:30 20 116/55 (75) 97 OxyMask 3.00 02/13/23 10:20 20 135/57 (83) 100 OxyMask 3.00 02/13/23 10:17 OxyMask 3.00 02/13/23 10:17 36.1 20 122/57 (78) 98 OxyMask 3.00 I & O 02/14/23 07:00 Intake Total 2550 ml Output Total 1250 ml Balance 1300 ml Lab Results Laboratory Tests 02/14/23 05:05: White Blood Count 19.3H, Red Blood Count 3.49L, Hemoglobin 11.0L, Hematocrit 33L , Mean Corpuscular Volume 95, Mean Corpuscular Hemoglobin 32, Mean Corpuscular Hemoglobin Concent 33, Red Cell Distribution Width 12.7, Platelet Count 280, Mean Platelet Volume 10.2, Immature Granulocyte % (Auto) 0, Neutrophils (%) (Auto) 75, Lymphocytes (%) (Auto) 11L, Monocytes (%) (Auto) 14H, Eosinophils (%) (Auto) 0, Basophils (%) (Auto) 0, Neutrophils # (Auto) 14.4H, Lymphocytes # (Auto) 2.1, Monocytes # (Auto) 2.6H, Eosinophils # (Auto) 0.0, Basophils # (Auto) 0.0, Immature Granulocyte # (Auto) 0.1, Neutrophils % (Manual) 80, Lymphocytes % (Manual) 13, Monocytes % (Manual) 7, Blood Morphology Comment NORMAL, Sodium Level 134L, Potassium Level 4.2, Chloride Level 101, Carbon Dioxide Level 25, Anion Gap 8, Blood Urea Nitrogen 13, Creatinine 0.77, Estimat Glomerular Filtration Rate 78, BUN/Creatinine Ratio 17, Glucose Level 124H, Calcium Level 9.0, Corrected Calcium 9.2, Total Bilirubin 0.9, Aspartate Amino Transf (AST/SGOT) 25, Alanine Aminotransferase (ALT/SGPT) 17, Alkaline Phosphatase 61, Total Protein 6.4, Albumin 3.8 Microbiology 02/13/23 MRSA Screen - Final, Complete MRSA not isolated Imaging 2 postop views of the right knee dated 02/13/23 were reviewed from PACS and demonstrated total knee arthroplasty with components in good alignment, no complications Assessment and Plan Assessment R Knee OA s/p TKA Problem List R Knee OA s/p TKA Plan PT/OT DVT Prophylaxis Planning for home with home health tomorrow Final Diagonsis R Knee OA s/p TKA Level of the visit: Level 3 (global) KRISTA SIERRA MD Feb 14, 2023 08:28
--- NOTE | 2023-02-14 08:49 | Physical Therapy Daily Note ---
PT Daily Note-Current Subjective Patient agrees to therapy. Pain Numeric Pain Scale: 8 Location: Right Location Body Site: Knee Pain Description: Acute Section J - Health Conditions 1. Rarely or not at all 2. Occasionally 3. Frequently 4. Almost constantly 8. Unable to answer Pain Effect on Sleep: 2 Pain Interference with Therapy: 2 Pain Interference w/Day-to-Day: 2 Transfers SCALE: Activities may be completed with or without assistive devices. 7-Nultlpnklu-ckbtgmn completes the activity by him/herself with no assistance from a helper. 5-Set-up or Clean-up Assistance-helper sets up or cleans up; patient completes activity. [place] assists only prior to or following the activity. 4-Supervision or Touching Assistance-helper provides verbal cues and/or carlos juan/steadying and/or contact guard assistance as patient completes activity. Assistance may be provided throughout the activity or intermittently. 3-Partial/Moderate Assistance-helper does LESS THAN HALF the effort. [place] lifts, holds or supports trunk or limbs, but provides less than half the effort. 2-Substantial/Maximal Assistance-helper does MORE THAN HALF the effort. [place] lifts or holds trunk or limbs and provides more than half the effort. 9-Rcviyziik-xowoaw does ALL the effort. Patient does none of the effort to complete the activity. Or, the assistance of 2 or more helpers is required for the patient to complete the activity. If activity was not attempted, code reason: 7-Patient Refused. 9-Not Applicable-not attempted and the patient did not perform the activity before the current illness, exacerbation or injury. 10-Not Attempted due to Environmental Limitations-(lack of equipment, weather restraints, etc.). 88-Not Attempted due to Medical Conditions or Safety Concerns. Lying to Sitting/Side of Bed(Q: 6 Sit to Stand (QC): 4 Chair/Stf-dw-Dvxvt Xfer(QC): 4 Toilet Transfer (QC): 4 Gait Training Distance: 250' Walk 10 feet (QC): 4 Walk 50 ft with 2 Turns(QC): 4 Walk 150 ft (QC): 4 Gait Assistive Device: FWW slow, antalgic gait Exercises Supine Ex: Ankle pumps, Quad Set, Heel Slides, Straight leg raise Supine Reps: 15 Seated Therapy Exercises: Long arc quads Seated Reps: 15 Assessment Patient progressing with treatment plan and is up in recliner with needs met. Patient AROM right knee 10 degrees to 70 degrees. Increase activity as tolerated by patient. PT Care Home Goals Icu Rn Goals PT Care Home Goals Time Frame: Feb 25, 2023 Roll Left & Right (QC): 6 Sit to Lying (QC): 6 Lying-Sitting on Side/Bed(QC): 6 Sit to Stand (QC): 6 Chair/Ebc-wi-Hwwfm Xfer(QC): 6 Toilet Transfer (QC): 6 Walk 10 feet (QC): 6 Walk 50ft with 2 Turns (QC): 6 Walk 150 ft (QC): 6 PT Plan Treatment/Plan Treatment Plan: Continue Plan of Care Treatment Plan: Bed Mobility, Education, Functional Activity Izzy, Functional Strength, Gait, Safety, Therapeutic Exercise, Transfers Treatment Duration: Feb 25, 2023 Frequency: 11 times per week Estimated Hrs Per Day: .5 hour per day Patient and/or Family Agrees t: Yes Time Time In: 740 Time Out: 804 DATE: Feb 14, 2023 Total Billed Treatment Time: 24 Total Billed Treatment 1 visit EX 12 min GT 12 min JULIO ROJAS PT Feb 14, 2023 08:49
--- NOTE | 2023-02-14 09:31 | Progress Note ---
DAVIDBERNARDO 02/14/23 0931: Subjective Date Seen by a Provider: Feb 14, 2023 Time Seen by a Provider: 08:30 Subjective/Events-last exam Ms. Villanueva is an 82 y/o female s/p R TKA by Dr. Han on 02/13. She is doing well today but does report some right knee pain/stiffness. She reports the pain meds have been helping. She denies SOB/CP or headache. The house catheter has been removed and she has since been able to void. She has not had a bowel movement yet nor felt the need to pass gas. She was able to walk the hallway with PT yesterday. She denies nausea vomiting and was able to eat breakfast this morning. She has been using the incentive spirometer. Review of Systems General: No Chills HEENT: No Head Aches Pulmonary: No Dyspnea, No Cough Cardiovascular: No: Chest Pain, Palpitations, Lt Headedness Gastrointestinal: No: Nausea, Vomiting, Abdominal Pain Genitourinary: No Dysuria, No Retention Musculoskeletal: leg pain; No: back pain Neurological: No: Weakness, Numbness Objective Exam Last Set of Vital Signs Vital Signs Date Time Temp Pulse Resp B/P (MAP) Pulse Ox O2 Delivery O2 Flow Rate FiO2 02/14/23 08:15 Room Air 02/14/23 07:14 36.4 84 16 165/72 (103) 95 02/13/23 14:21 2.00 Capillary Refill : Less Than 3 Seconds I&O Intake and Output 02/13/23 23:59 Intake Total 1950 ml Output Total 900 ml Balance 1050 ml Intake Oral 900 ml IV Total 1050 ml Output Urine Total 900 ml Daily Weight Change No General: Alert, Oriented X3, Cooperative, No Acute Distress HEENT: Atraumatic, EOMI Neck: Supple Lungs: Clear to Auscultation, Normal Air Movement Heart: Regular Rate, No Murmurs Abdomen: Normal Bowel Sounds, Soft, No Tenderness Extremities: No Cyanosis, Normal Pulses Skin: No Rashes Neuro: Normal Speech, Sensation Intact Psych/Mental Status: Mental Status NL Results Lab Laboratory Tests 02/14/23 05:05: White Blood Count 19.3H, Red Blood Count 3.49L, Hemoglobin 11.0L, Hematocrit 33L , Mean Corpuscular Volume 95, Mean Corpuscular Hemoglobin 32, Mean Corpuscular Hemoglobin Concent 33, Red Cell Distribution Width 12.7, Platelet Count 280, Mean Platelet Volume 10.2, Immature Granulocyte % (Auto) 0, Neutrophils (%) (Auto) 75, Lymphocytes (%) (Auto) 11L, Monocytes (%) (Auto) 14H, Eosinophils (%) (Auto) 0, Basophils (%) (Auto) 0, Neutrophils # (Auto) 14.4H, Lymphocytes # (Auto) 2.1, Monocytes # (Auto) 2.6H, Eosinophils # (Auto) 0.0, Basophils # (Auto) 0.0, Immature Granulocyte # (Auto) 0.1, Neutrophils % (Manual) 80, Lymphocytes % (Manual) 13, Monocytes % (Manual) 7, Blood Morphology Comment NORMAL, Sodium Level 134L, Potassium Level 4.2, Chloride Level 101, Carbon Dioxide Level 25, Anion Gap 8, Blood Urea Nitrogen 13, Creatinine 0.77, Estimat Glomerular Filtration Rate 78, BUN/Creatinine Ratio 17, Glucose Level 124H, Calcium Level 9.0, Corrected Calcium 9.2, Total Bilirubin 0.9, Aspartate Amino Transf (AST/SGOT) 25, Alanine Aminotransferase (ALT/SGPT) 17, Alkaline Phosphatase 61, Total Protein 6.4, Albumin 3.8 Microbiology 02/13/23 MRSA Screen - Final, Complete MRSA not isolated Assessment/Plan Assessment/Plan Assess & Plan/Chief Complaint Assessment: Ms. Villanueva is an 82 y/o female s/p Right TKA on 02/13 Plan: R Knee Pain -s/p TKA 02/13 -Dr. Han following -pain meds prn -continue PT/OT -DVT prophylaxis JASMIN NELSON DO 02/14/232101: Subjective Subjective/Events-last exam Improved status A lot of pain reported Using IS Objective Exam General: Alert, Oriented X3, Cooperative, No Acute Distress Lungs: Clear to Auscultation, Normal Air Movement Heart: Regular Rate, Normal S1, Normal S2, No Murmurs Psych/Mental Status: Mental Status NL, Mood NL Assessment/Plan Assessment/Plan Assess & Plan/Chief Complaint Pain control Recheck labs in am Supervisory-Addendum Brief Verification & Attestation Participated in pt care: history, MDM, physical Personally performed: exam, history, MDM, supervision of care Care discussed with: Medical Student Procedures: n/a Results interpretation: Verified all documentation Verification and Attestation of Medical Student E/M Service A medical student performed and documented this service in my presence. I reviewed and verified all information documented by the medical student and made modifications to such information, when appropriate. I personally performed the physical exam and medical decision making. Jasmin Nelson, Feb 14, 2023,21:02 BERNARDO HERNANDEZ Feb 14, 2023 09:31 JASMIN NELSON DO Feb 14, 2023 21:02
[2023-02-14 11:28] VITALS: BP 169/72
--- NOTE | 2023-02-14 12:52 | Anesthesia-Regional Post-Op ---
Regional Patient Condition Mental Status: Alert, Oriented x3 Circulation: Same as Pre-Op Headache: Absent Sensation: Full Recovery Motor Block: Absent Post Op Complications Complications None Follow Up Care/Instructions Patient Instructions None needed. Anesthesia/Patient Condition Patient is doing well, no complaints, stable vital signs, no apparent adverse anesthesia problems. No complications reported per nursing. GABINO SMITH CRNA Feb 14, 2023 12:52
--- NOTE | 2023-02-14 13:11 | Occ Therapy Progress Note ---
Therapy Progress Note PER Physical therapy and discussion w/ Patient, no OT indicated at this time JACQUE HURST OT Feb 14, 2023 13:11
--- NOTE | 2023-02-14 13:26 | Physical Therapy Daily Note ---
PT Daily Note-Current Subjective Patient states, "There is no way I can go home and take care of my self. I need help to do everything." Pain Section J - Health Conditions 1. Rarely or not at all 2. Occasionally 3. Frequently 4. Almost constantly 8. Unable to answer Pain Effect on Sleep: 2 Pain Interference with Therapy: 2 Pain Interference w/Day-to-Day: 2 Transfers SCALE: Activities may be completed with or without assistive devices. 3-Askceylwir-hlikuzt completes the activity by him/herself with no assistance from a helper. 5-Set-up or Clean-up Assistance-helper sets up or cleans up; patient completes a ctivity. [place] assists only prior to or following the activity. 4-Supervision or Touching Assistance-helper provides verbal cues and/or touching/steadying and/or contact guard assistance as patient completes activity. Assistance may be provided throughout the activity or intermittently. 3-Partial/Moderate Assistance-helper does LESS THAN HALF the effort. [place] lifts, holds or supports trunk or limbs, but provides less than half the effort. 2-Substantial/Maximal Assistance-helper does MORE THAN HALF the effort. [place] lifts or holds trunk or limbs and provides more than half the effort. 8-Bitjfntie-hhtana does ALL the effort. Patient does none of the effort to complete the activity. Or, the assistance of 2 or more helpers is required for the patient to complete the activity. If activity was not attempted, code reason: 7-Patient Refused. 9-Not Applicable-not attempted and the patient did not perform the activity before the current illness, exacerbation or injury. 10-Not Attempted due to Environmental Limitations-(lack of equipment, weather restraints, etc.). 88-Not Attempted due to Medical Conditions or Safety Concerns. Sit to Lying (QC): 6 Lying to Sitting/Side of Bed(Q: 6 Sit to Stand (QC): 6 Toilet Transfer (QC): 6 Gait Training Distance: 250' Walk 10 feet (QC): 5 Walk 50 ft with 2 Turns(QC): 5 Walk 150 ft (QC): 5 Gait Assistive Device: FWW slow, steady, antalgic gait sequence Exercises Supine Ex: Ankle pumps, Quad Set, Heel Slides, Straight leg raise Supine Reps: 15 Seated Therapy Exercises: Long arc quads Seated Reps: 15 Assessment Patient tolerated treatment well and returned to bed per her request. She states she was up to the chair for an hour today. PT instructed patient to be OOB more during the day. AROM right knee improving slowly. PT Dry Wall Plasterer Goals Dry Wall Plasterer Goals PT Dry Wall Plasterer Goals Time Frame: Feb 25, 2023 Roll Left & Right (QC): 6 Sit to Lying (QC): 6 Lying-Sitting on Side/Bed(QC): 6 Sit to Stand (QC): 6 Chair/Uga-mz-Gxnvq Xfer(QC): 6 Toilet Transfer (QC): 6 Walk 10 feet (QC): 6 Walk 50ft with 2 Turns (QC): 6 Walk 150 ft (QC): 6 PT Plan Treatment/Plan Treatment Plan: Continue Plan of Care Treatment Plan: Bed Mobility, Education, Functional Activity Izzy, Functional Strength, Gait, Safety, Therapeutic Exercise, Transfers Treatment Duration: Feb 25, 2023 Frequency: 11 times per week Estimated Hrs Per Day: .5 hour per day Patient and/or Family Agrees t: Yes Time Time In: 1250 Time Out: 1315 DATE: Feb 14, 2023 Total Billed Treatment Time: 25 Total Billed Treatment 1 visit EX 15 min GT 10 min JULIO ROJAS PT Feb 14, 2023 13:25
[2023-02-14 16:09] VITALS: BP 185/76
[2023-02-14] MEDS: MELOXICAM 7.5 MG TABLET PO SCH (19:27)
[2023-02-14 19:43] VITALS: BP 156/68
[2023-02-14 23:16] VITALS: BP 170/79
[2023-02-15 04:00] VITALS: BP 140/65
[2023-02-15] MEDS: THERAPEUTIC MULTIVITAMIN W/MINERALS TABLET PO SCH (05:17)
[2023-02-15 05:38] LABS: BASOPHILS % (AUTO) 0 % (0-10); EOSINOPHILS % (AUTO) 0 % (0-10); HEMATOCRIT 28 % (35-52); LYMPHOCYTES # (AUTO) 2.1 10^3/uL (1.0-4.0); LYMPHOCYTES % (AUTO) 13 % (12-44); MEAN CORPUSCULAR HEMOGLOBIN 31 pg (25-34); MEAN CORPUSCULAR HGB CONC 32 g/dL (32-36); MEAN CORPUSCULAR VOLUME 97 fL (80-99); MONOCYTES # (AUTO) 2.2 10^3/uL (0.0-1.0); MONOCYTES % (AUTO) 14 % (0-12); NEUTROPHILS # (AUTO) 11.5 10^3/uL (1.8-7.8); NEUTROPHILS % (AUTO) 72 % (42-75); PLATELET COUNT 223 10^3/uL (130-400); WHITE BLOOD COUNT 15.9 10^3/uL (4.3-11.0)
[2023-02-15 05:49] LABS: ALBUMIN 3.3 GM/DL (3.2-4.5); POTASSIUM 3.8 MMOL/L (3.6-5.0)
[2023-02-15 05:51] LABS: CALCIUM 8.6 MG/DL (8.5-10.1)
[2023-02-15 05:52] LABS: TOTAL PROTEIN 5.9 GM/DL (6.4-8.2)
[2023-02-15 05:55] LABS: CREATININE SERUM 0.64 MG/DL (0.60-1.30)
[2023-02-15 07:28] VITALS: BP 137/67
[2023-02-15] MEDS ORDERED: OXC5T PO (08:38)
[2023-02-15] MEDS ORDERED: CYCL10TA25 PO (08:38)
[2023-02-15] MEDS ORDERED: ASPI-1238 PO (08:38)
--- NOTE | 2023-02-15 08:41 | Discharge Summary ---
Discharge Summary Hospital Course Hospital Course Date of Admission: 02/13/23 Admission Diagnosis : Right Knee Primary Osteoarthritis Family Physician/Provider: Jasmin Braxton Date of Discharge: 02/15/23 Discharge Diagnosis: [Right Knee Primary Osteoarthritis s/p TKA ] Hospital Course: [ On 02/13/23, patient underwent right total knee arthroplasty. Tolerated the procedure well and was transferred to the regular floor. On the day of surgery, began mechanical DVT prophylaxis and started to work with therapy. On POD #1, made good progress with therapy and began chemical DVT prophylaxis. On POD #2, continued to make progress with therapy and home health therapy arrangements were made. Patient was ready for discharge home.] Labs and Pending Lab Test: Laboratory Tests 02/15/23 05:15: White Blood Count 15.9H, Red Blood Count 2.87L, Hemoglobin 9.0L, Hematocrit 28L, Mean Corpuscular Volume 97, Mean Corpuscular Hemoglobin 31, Mean Corpuscular Hemoglobin Concent 32, Red Cell Distribution Width 12.8, Platelet Count 223, Mean Platelet Volume 10.0, Immature Granulocyte % (Auto) 0, Neutrophils (%) (Auto) 72, Lymphocytes (%) (Auto) 13, Monocytes (%) (Auto) 14H, Eosinophils (%) (Auto) 0, Basophils (%) (Auto) 0, Neutrophils # (Auto) 11.5H, Lymphocytes # (Auto) 2.1, Monocytes # (Auto) 2.2H, Eosinophils # (Auto) 0.0, Basophils # (Auto) 0.0, Immature Granulocyte # (Auto) 0.1, Sodium Level 135, Potassium Level 3.8, Chloride Level 103, Carbon Dioxide Level 25, Anion Gap 7, Blood Urea Nitrogen 13, Creatinine 0.64, Estimat Glomerular Filtration Rate 89, BUN/Creatinine Ratio 20, Glucose Level 112H, Calcium Level 8.6, Corrected Calcium 9.2, Total Bilirubin 1.0, Aspartate Amino Transf (AST/SGOT) 40H, Alanine Aminotransferase (ALT/SGPT) 15, Alkaline Phosphatase 51, Total Protein 5.9L, Albumin 3.3 Microbiology 02/13/23 MRSA Screen - Final, Complete MRSA not isolated Home Meds Active Aspirin EC (Aspirin) 81 Mg Tablet.dr 81 Mg PO BID WITH MEALS 14 Days Cyclobenzaprine HCl 10 Mg Tablet 5 Mg PO Q12HR PRN 10 Days Reported Meloxicam 15 Mg Tablet 15 Mg PO HS Citracal + D Maximum Caplet (Calcium Citrate/Vitamin D3) 315MG-6.25 Tablet 1 Each PO HS Assessment/Pt Instructions WBAT on right leg; use walker for assist. Dry dressing daily to incision site; do not get incision wet. Home health therapy for motion/strengthening/gait training. F/U with Dr. Krista Han ~2 weeks after surgery. Discharge Instructions Discharge Diet: No Restrictions Discharge Physical Examination Vital Signs Vital Signs Date Time Temp Pulse Resp B/P (MAP) Pulse Ox O2 Delivery O2 Flow Rate FiO2 02/15/23 07:28 36.8 99 17 137/67 (90) 94 Room Air 02/13/23 14:21 2.00 Extremity: Other (R Knee: Dressing C/D/I, +DF of ankle, no s/s of DVT) Allergies: Coded Allergies: methylprednisolone (Verified Allergy, Severe, RASH, 01/24/23) morphine (Verified Allergy, Severe, VOMITTING, 01/24/23) Sulfa (Sulfonamide Antibiotics) (Verified Allergy, Unknown, UNKNOWN, 01/24/23) CHILDHOOD REACTION cefdinir (Verified Allergy, Unknown, c-diff, 11/12/18) ciprofloxacin (Verified Allergy, Unknown, c-diff, 11/12/18) metronidazole (Verified Allergy, Unknown, c-diff, 11/12/18) Discharge Summary Date of Admission Date of Discharge KRISTA HAN MD Feb 15, 2023 08:41
--- NOTE | 2023-02-15 08:43 | D/C HH Face to Face Order ---
D/C Face to Face Orders Instructions for Patient Via [facility], Patient Instructions/FollowUp: WBAT on right leg; use walker for assist. Dry dressing daily to incision site; do not get incision wet. Home health therapy for motion/strengthening/gait training. F/U with Dr. Kemar Han ~2 weeks after surgery. Physician to follow Patient: Kemar Han Discharge Diet for Home: No Restrictions Patient Data-Allergies,Ht & Wt Patient Allergies: Coded Allergies: methylprednisolone (Verified Allergy, Severe, RASH, 01/24/23) morphine (Verified Allergy, Severe, VOMITTING, 01/24/23) Sulfa (Sulfonamide Antibiotics) (Verified Allergy, Unknown, UNKNOWN, 01/24/23) CHILDHOOD REACTION cefdinir (Verified Allergy, Unknown, c-diff, 11/12/18) ciprofloxacin (Verified Allergy, Unknown, c-diff, 11/12/18) metronidazole (Verified Allergy, Unknown, c-diff, 11/12/18) Height (Feet): 5 Height (Inches): 5.00 Weight (Pounds): 119 Weight (Ounces): 0.0 Home Health Need/Face to Face Date of Face to Face: Feb 15, 2023 Clinical Findings: Muscle weakness, Pain with ambulation I have seen Pt ycmc-vg-[id number]: Yes Discharged To: Home Diagnosis/Conditions: Right Knee Primary OA s/p TKA Patient is Homebound due to: Muscle weakness, Pain w/ambulation Homebound Status Due to the above stated illness, injury or surgical procedure (medical co ndition or diagnosis) and associated clinical findings, the patient is homebound because of his/her inability to leave home except with aid of a supportive device and/or person AND leaving the home requires a considerable and taxing effort or is medically contraindicated. Pt req the following assistanc: Walker Home Health Nursing Orders Home Health Services Order: Physical Therapy-Evaluate & Treat Home Health Infusion Therapy Line Start Date: Feb 13, 2023 Therapy Orders Therapy Specific Orders: Gait training, Increase strength/endurance, Restore ROM Certify Stmt I certify that this patient is under my care and that I, a nurse practitioner or a physician; a portfolio assistant working with me, had a face to face encounter that - meets the physician face to face encounter requirements with this patient as dated. KEMAR HAN MD Feb 15, 2023 08:43
[2023-02-15] MEDS: DOCUSATE SODIUM 100 MG CAPSULE PO SCH (08:48)
[2023-02-15] MEDS: ASPIRIN enteric coated 81MG TABLET PO SCH (08:49)
--- NOTE | 2023-02-15 09:30 | Physical Therapy Daily Note ---
PT Daily Note-Current Subjective Patient sitting in chair upon PT arrival, agreeable to treatment. Patient rates pain at 0/10 currently. Pain Section J - Health Conditions 1. Rarely or not at all 2. Occasionally 3. Frequently 4. Almost constantly 8. Unable to answer Pain Effect on Sleep: 2 Pain Interference with Therapy: 2 Pain Interference w/Day-to-Day: 2 Transfers SCALE: Activities may be completed with or without assistive devices. 6-Magmutcrdf-aoxsacd completes the activity by him/herself with no assistance from a helper. 5-Set-up or Clean-up Assistance-helper sets up or cleans up; patient completes a ctivity. [place] assists only prior to or following the activity. 4-Supervision or Touching Assistance-helper provides verbal cues and/or touching/steadying and/or contact guard assistance as patient completes activity. Assistance may be provided throughout the activity or intermittently. 3-Partial/Moderate Assistance-helper does LESS THAN HALF the effort. [place] lifts, holds or supports trunk or limbs, but provides less than half the effort. 2-Substantial/Maximal Assistance-helper does MORE THAN HALF the effort. [place] lifts or holds trunk or limbs and provides more than half the effort. 3-[place]cty[place]-asotyf does ALL the effort. Patient does none of the effort to complete the activity. Or, the assistance of 2 or more helpers is required for the patient to complete the activity. If activity was not attempted, code reason: 7-Patient Refused. 9-Not Applicable-not attempted and the patient did not perform the activity before the current illness, exacerbation or injury. 10-Not Attempted due to Environmental Limitations-(lack of equipment, weather restraints, etc.). 88-Not Attempted due to Medical Conditions or Safety Concerns. Sit to Stand (QC): 4 Chair/Akt-fp-Apdjb Xfer(QC): 4 Gait Training Does the Patient Walk?: Yes Distance: 220' Walk 10 feet (QC): 4 Walk 50 ft with 2 Turns(QC): 4 Walk 150 ft (QC): 4 Gait Assistive Device: FWW Stair Training Stair Training: Handrails/: 1 handrail, uses walker #of Steps: 5 1 Step (curb) (QC): 4 4 Steps (QC): 4 Stairs: Pattern: Step to Exercises Supine Ex: Ankle pumps, Quad Set, Glut sets Supine Reps: 20 Assessment Patient tolerated treatment well. Performs all transfers with SBA. Patient ambulates to stairs and ascends/descends 5 steps with left handrail ascending and FWW, with CGA. Patient ambulates 220' total with FWW, with SBA. Patient in chair post treatment with all needs met, nursing notified, call light in hand. PT Wind Turbine Machinist Goals Senior Living Goals PT Senior Living Goals Time Frame: Feb 25, 2023 Roll Left & Right (QC): 6 Sit to Lying (QC): 6 Lying-Sitting on Side/Bed(QC): 6 Sit to Stand (QC): 6 Chair/Osu-yo-Ubpbz Xfer(QC): 6 Toilet Transfer (QC): 6 Walk 10 feet (QC): 6 Walk 50ft with 2 Turns (QC): 6 Walk 150 ft (QC): 6 PT Plan Treatment/Plan Treatment Plan: Continue Plan of Care Treatment Plan: Bed Mobility, Education, Functional Activity Izzy, Functional Strength, Gait, Safety, Therapeutic Exercise, Transfers Treatment Duration: Feb 25, 2023 Frequency: 11 times per week Estimated Hrs Per Day: .5 hour per day Patient and/or Family Agrees t: Yes Safety Risks/Education Patient Education: Gait Training, Transfer Techniques, Steps Teaching Recipient: Patient Teaching Methods: Demonstration, Discussion Response to Teaching: Verbalize Understanding, Return Demonstration Time Time In: 817 Time Out: 833 DATE: Feb 15, 2023 Total Billed Treatment Time: 16 Total Billed Treatment Visit, ESTEBAN INTERIANO PT Feb 15, 2023 09:30
--- NOTE | 2023-02-15 09:48 | Progress Note ---
DAVIDBERNARDO 02/15/23 0948: Subjective Date Seen by a Provider: Feb 15, 2023 Time Seen by a Provider: 08:30 Subjective/Events-last exam Ms. Villanueva is doing well today and has no complaints. She reports no knee pain and has been walking with PT. She denies headache, SOB, CP, abdominal pain, or calf pain. She is eating w/o N/V. No bowel movement but she is passing gas. Review of Systems General: No Chills, No Night Sweats HEENT: No Head Aches, No Visual Changes Pulmonary: No Dyspnea, No Cough, No Pleuritic Chest Pain Cardiovascular: No: Chest Pain, Palpitations Gastrointestinal: No: Nausea, Vomiting, Abdominal Pain Genitourinary: No Dysuria, No Frequency Neurological: No: Weakness, Numbness Objective Exam Last Set of Vital Signs Vital Signs Date Time Temp Pulse Resp B/P (MAP) Pulse Ox O2 Delivery O2 Flow Rate FiO2 02/15/23 09:15 94 Room Air 02/15/23 07:28 36.8 99 17 137/67 (90) 02/13/23 14:21 2.00 Capillary Refill : Less Than 3 Seconds I&O Intake and Output 02/14/23 23:59 Intake Total 2990 ml Output Total 1550 ml Balance 1440 ml Intake Oral 1840 ml IV Total 1150 ml Output Urine Total 1550 ml General: Alert, Oriented X3, Cooperative HEENT: Atraumatic, PERRLA, EOMI Neck: Supple Lungs: Clear to Auscultation, Normal Air Movement Heart: Regular Rate, No Murmurs Abdomen: Normal Bowel Sounds, Soft, No Tenderness Extremities: No Cyanosis, No Edema, Normal Pulses Skin: No Rashes Neuro: Normal Speech Psych/Mental Status: Mental Status NL Results Lab Laboratory Tests 02/15/23 05:15: White Blood Count 15.9H, Red Blood Count 2.87L, Hemoglobin 9.0L, Hematocrit 28L, Mean Corpuscular Volume 97, Mean Corpuscular Hemoglobin 31, Mean Corpuscular Hemoglobin Concent 32, Red Cell Distribution Width 12.8, Platelet Count 223, Mean Platelet Volume 10.0, Immature Granulocyte % (Auto) 0, Neutrophils (%) (Auto) 72, Lymphocytes (%) (Auto) 13, Monocytes (%) (Auto) 14H, Eosinophils (%) (Auto) 0, Basophils (%) (Auto) 0, Neutrophils # (Auto) 11.5H, Lymphocytes # (Auto) 2.1, Monocytes # (Auto) 2.2H, Eosinophils # (Auto) 0.0, Basophils # (Auto) 0.0, Immature Granulocyte # (Auto) 0.1, Sodium Level 135, Potassium Level 3.8, Chloride Level 103, Carbon Dioxide Level 25, Anion Gap 7, Blood Urea Nitrogen 13, Creatinine 0.64, Estimat Glomerular Filtration Rate 89, BUN/Creatinine Ratio 20, Glucose Level 112H, Calcium Level 8.6, Corrected Calcium 9.2, Total Bilirubin 1.0, Aspartate Amino Transf (AST/SGOT) 40H, Alanine Aminotransferase (ALT/SGPT) 15, Alkaline Phosphatase 51, Total Protein 5.9L, Albumin 3.3 Microbiology 02/13/23 MRSA Screen - Final, Complete MRSA not isolated Assessment/Plan Assessment/Plan Assess & Plan/Chief Complaint Assessment: Ms. Villanueva is an 82 y/o female s/p Right TKA on 02/13 Plan: R Knee Pain -s/p TKA 02/13 -Dr. Han following -pain meds prn -continue PT/OT -DVT prophylaxis -follow up with Dr. Han 2 wks JASMIN NELSON DO 02/16/23 0431: Subjective Subjective/Events-last exam Patient is doing well Ready for DC Objective Exam General: Alert, Oriented X3, Cooperative, No Acute Distress Assessment/Plan Assessment/Plan Assess & Plan/Chief Complaint DC home Supervisory-Addendum Brief Verification & Attestation Participated in pt care: history, MDM, physical Personally performed: exam, history, MDM, supervision of care Care discussed with: Medical Student Procedures: n/a Results interpretation: Verified all documentation Verification and Attestation of Medical Student E/M Service A medical student performed and documented this service in my presence. I reviewed and verified all information documented by the medical student and made modifications to such information, when appropriate. I personally performed the physical exam and medical decision making. Jasmin Nelson Feb 16, 2023,04:30 BERNARDO HERNANDEZ Feb 15, 2023 09:48 JASMIN NELSON DO Feb 16, 2023 04:31
[2023-02-15 11:32] VITALS: BP 141/68
[2023-02-15 11:45] VITALS: BP 141/68
== END 2023-02-15 12:55 | disposition home health service (06) ==
LOC: SDC 06:00 → 4TH 11:17 → SDC 02-15 12:55
PROVIDERS: ATTEND Orthopaedic Surgery
DX: M17.11 Unilateral primary osteoarthritis, right knee (principal); F41.9 Anxiety disorder, unspecified; M85.80 Other specified disorders of bone density and structure, unspecified site; M19.90 Unspecified osteoarthritis, unspecified site; K21.9 Gastro-esophageal reflux disease without esophagitis; F17.210 Nicotine dependence, cigarettes, uncomplicated
CPT/HCPCS: 27447; 73560; 80053; 85025; 87081; 94664; 94760; 97110; 97116 ×2; 97162; C1713 ×2; C1776 ×4; 36415

== ENCOUNTER → 2023-02-28 | Outpatient (CLI) | payer MEDICARE, OTHER ==
[~2023-02-28] MED LIST changes: +ASPI-1238 PO; +CYCL10TA25 PO; +OXC5T PO
== END ==
LOC: ORTHO 10:06
PROVIDERS: ATTEND Orthopaedic Surgery
DX: Z47.89 Encounter for other orthopedic aftercare (principal); Z96.651 Presence of right artificial knee joint

== ENCOUNTER → 2023-03-02 | Outpatient (RCR) | payer MEDICARE, OTHER | PROVIDERS: ATTEND Orthopaedic Surgery | DX: Z09 Encounter for follow-up examination after completed treatment for conditions other than malignant neoplasm (principal) ==